=== PATIENT | female | born 1930 | race Caucasian/White ===

== ENCOUNTER 2017-06-09 08:46 | Inpatient (IN) | payer MEDICARE ==
[2017-06-09 09:24] LABS: PTT 25.6 SEC (22.9-36.1); Prothrombin Time 14.3 SEC (12.0-14.7)
--- NOTE | 2017-06-09 09:24 | RAD ---
AP CHEST: History: Dyspnea. Date: 06-09-17 FINDINGS: AP chest demonstrates calcification and ectasia over the aorta. The lungs are well aerated. No eviden ce of active intrathoracic disease seen. No evidence of effusions, pneumonia, or pneumothorax seen. IMPRESSION: Unremarkable AP view chest. POS: [facility]
[2017-06-09 09:30] LABS: Lactic Acid - Sepsis 2.7 mmol/L (0.5-2.2)
[2017-06-09 09:36] LABS: ALT (SGPT) 25 U/L (8-55); AST (SGOT) 55 U/L (5-34); Alkaline Phosphatase 61 U/L (40-150); Anion Gap 14 mmol/L (10-20); BUN (Urea Nitrogen) 31 mg/dL (9.8-20.1); Bilirubin, Total 2.1 mg/dL (0.2-1.2); CK (CPK) Less than 9 U/L (29-168); Calc. Creatinine Clearance 0 mL/min (70-130); Calcium 10.3 mg/dL (7.8-10.44); Carbon Dioxide 21 mmol/L (23-31); Chloride 112 mmol/L (98-107); Estimated GFR-MDRD 36; Globulin 2.8 g/dL (2.4-3.5); Magnesium 2.2 mg/dL (1.6-2.6); Protein, Total 6.4 g/dL (6.0-8.3)
[2017-06-09 09:40] LABS: Troponin I 0.026 ng/mL (< 0.028)
[2017-06-09 10:03] LABS: #Basophils 0.1 thou/uL (0.0-0.2); #Eosinphils 0.1 thou/uL (0.0-0.7); #Lymphocytes 2.5 thou/uL (1.20-3.40); #Monocytes 0.4 thou/uL (0.11-0.59); #Neutrophils 6.6 thou/uL (1.40-6.50); %Basophils 0.6 % (0.0-1.0); %Lymphocytes 25.9 % (21.0-51.0); %Monocytes 3.7 % (0.0-10.0); Hematocrit 24.1 % (36.0-47.0); Mean Platelet Volume 7.9 fL (7.4-10.4); Red Blood Cell (RBC) Count 2.29 mill/uL (4.20-5.40); White Blood Cell (WBC) Count 9.6 thou/uL (4.8-10.8)
[2017-06-09] MEDS ORDERED: Aspirin 325 MG TAB ONE (11:49)
[2017-06-09] MEDS ORDERED: Enoxaparin Sodium 40 MG/0.4 ML SYRINGE ONE (12:32)
--- NOTE | 2017-06-09 12:51 | CT ---
CT ANGIOGRAM THORAX WITH IV CONTRAST AND 3D RECONSTRUCTIONS: 06/09/2017 HISTORY: Dyspnea and weakness. Lightheadedness. Decreased oxygen saturation. FINDINGS: There are filling defects seen within the distal aspect of the main pulmonary arteries bilaterally, w ith filling defects seen within the segmental and subsegmental bilateral upper lobe pulmonary arterie s, as well as right lower lobe pulmonary arteries, and to a lesser extent in the left lower lobe pulm onary arteries, consistent with bilateral pulmonary emboli. Vascular calcifications and atherosclerotic plaque are seen involving the thoracic aorta. The thorac ic aorta is normal in caliber without evidence of an aortic dissection. There are linear and parenchymal opacities seen in each lung apex, some of which are partially calcif ied and likely related to pleural and parenchymal scarring. Similar findings are seen in the superio r segment of the left lower lobe, as well as involving each lower lobe, which may be related to eithe r atelectasis and/or scarring as well. There is slight linear and patchy density at the lateral aspe ct of the right upper lobe, which may also be related to an area of mild scarring. There is no discr ete pulmonary nodule or mass identified. There is no evidence of lymphadenopathy. The visualized upper abdomen has a normal CT appearance, aside from atherosclerotic vascular calcific ations in the visualized proximal abdominal aorta. A small hiatal hernia is present. IMPRESSION: 1. Bilateral pulmonary emboli. 2. Scattered linear and patchy densities throughout the lungs bilaterally, probably related to areas of scarring and/or areas of atelectasis. Minimal linear and patchy density in the lateral right upp er lobe may be related to either scarring or a focal area of pneumonitis. Clinical correlation is ross ggested. 3. The above findings were discussed with Dr. Almaguer in the emergency department on 06/09/2017 at 12 :23 hours. CODE CR POS: [facility]
[2017-06-09 13:39] LABS: Bilirubin Negative (Negative); Blood, Urine Trace (Negative); Glucose, Urine (Dipstick) Negative (Negative); Ketone, Urine Negative (Negative); Nitrite Negative (Negative); Protein, Urine (Dipstick) Trace mg/dL (Neg-Trace); Urobilinogen 0.2 mg/dL (0.2-1.0)
[2017-06-09 13:52] LABS: Bacteria/HPF None Seen HPF (None Seen); Hyaline Casts/LPF 0-3 HYALINE CAST LPF (0-3 Hyaline); Squamous Epithelial 0-3 HPF (0-3); WBC/HPF 0-3 HPF (0-3)
[2017-06-09] MEDS ORDERED: ISOVUE-370 76%-LOCM 1 ML ONE (13:55)
[2017-06-09] MEDS ORDERED: HYDROcodone/Acetaminophen 5/325 mg Tablet PO PRN (15:52)
[2017-06-09] MEDS ORDERED: HYDROcodone/Acetaminophen 10/325 mg Tablet PO PRN (15:52)
[2017-06-09] MEDS ORDERED: Acetaminophen 325 MG TAB PO PRN (15:52)
[2017-06-09] MEDS ORDERED: Ondansetron ODT 4 MG TAB PO PRN (15:52)
[2017-06-09] MEDS: Famotidine 20 MG TAB PO SCH (21:58)
[2017-06-09] MEDS: Rivaroxaban 15 MG TAB PO SCH (21:58)
[2017-06-10 05:30] LABS: Anion Gap 16 mmol/L (10-20); BUN (Urea Nitrogen) 25 mg/dL (9.8-20.1); Calc. Creatinine Clearance 25 mL/min (70-130); Calcium 8.7 mg/dL (7.8-10.44); Carbon Dioxide 16 mmol/L (23-31); Chloride 115 mmol/L (98-107); Estimated GFR-MDRD 45
[2017-06-10 06:19] LABS: Band 3 % (5-11); Mean Platelet Volume 7.9 fL (7.4-10.4); Metamyelocyte 2 % (0-0); Myelocyte 1 % (0-0); Neutrophil 62 % (42-75); Nucleated RBC 2 % (0); Red Blood Cell (RBC) Count 1.73 mill/uL (4.20-5.40); White Blood Cell (WBC) Count 7.1 thou/uL (4.8-10.8)
[2017-06-10] MEDS: Famotidine 20 MG TAB PO SCH (08:29)
[2017-06-10] MEDS: Rivaroxaban 15 MG TAB PO SCH ×2 (08:29→21:24)
[2017-06-10] MEDS ORDERED: Epoetin (ESRD) 10,000 UNITS/ML VIAL SC SCH (09:33)
[2017-06-10] MEDS ORDERED: Furosemide 20 MG/2 ML VIAL IVP SCH (09:45)
--- NOTE | 2017-06-10 10:50 | CON ---
DATE OF CONSULTATION: 06/10/2017 HISTORY: Marilu Broussard is an 86-year-old female who has moved recently from out of [facility], [place] . She has seen a local doctor at [facility], Dr. Waters. She now presents last night with weakn ess, lightheaded, low sats. Apparently field contact person is a nurse, her granddaughter. She said her sats w ere in the 80s. A CT angio showed bilateral pulmonary emboli. Two weeks ago she went to see her [facility] sician where she had increase in renal function and apparently the usp Xarelto that she was on was discontinued. She has had previous deep venous thrombosis following hospitalization and rehab in [place]. She is a former smoker, quit smoking at the age of 38. Previous history of pneumonia, but no history of TB or asthma. She is relatively weak. She has lost a lot of appetite and apparently has difficu lty getting around. Though she was not short of breath until recently. She has had chronic pain in the back following a fall. PAST MEDICAL HISTORY: Presumed congestive heart failure, although her ejection fraction has been nor mal. Presumed pulmonary hypertension, renal failure, arthritis, fracture of the spine, chronic pain, bilateral hernia, previous respiratory failure requiring intermediate card tender rehab for a period of time. PAST SURGICAL HISTORY: section. TOBACCO: As noted. CHRONIC MEDICATIONS FROM HOME: Zoloft 25, potassium, vitamins, metoprolol 25, Megace which was stopp ed, Lasix 40, Procrit 2000, Dicyclamine 20, calcium. REVIEW OF SYSTEMS: Otherwise unremarkable. PHYSICAL EXAMINATION: VITAL SIGNS: Sats are 98 on 2 liters, respiratory rate 18, temperature 97, blood pressure 113/48. CHEST: Chest revealed decreased breath sounds, no wheezing. CARDIAC: Normal S1, S2. ABDOMEN: Soft, no masses. LABORATORY: White count 7,000, H&H 6 and 18, platelet count is 342, creatinine 1.3 normal. IMPRESSION: 1. Bilateral pulmonary emboli. 2. Congestive heart failure by history. 3. Mild azotemia. PLAN: Repeat echo. Continue Xarelto indefinitely. No reason to put in a filter at this stage. Will discuss with physicians and follow. I agree with Xarelto, minimize sedation.
--- NOTE | 2017-06-10 11:01 | PDOC.PN ---
- Subjective Encounter Start Date: 06/10/17 Encounter Start Time: 08:15 Pt seen earlier this morning on rounds. States her breathing is better and that she slept well. labs this morning revealed profound anemia. No melena, hematochezia, no hemoptysis. suggest consumption in blood blots/emboli No f/c, no n/v/D/c, no hemoptysis, no cough. 10 point ROS performed and neg for all except as above - Objective Resuscitation Status: Resuscitation Status FULL:Full Resuscitation MAR Reviewed: Yes Vital Signs & Weight: Vital Signs (12 hours) Temp Pulse Resp BP Pulse Ox 06/10/17 07:43 97.7 F 86 20 06/10/17 07:00 97.7 F 86 20 113/48 L 100 Weight Weight 100 lb I&O: 06/09/17 06/10/17 06/11/17 06:59 06:59 06:59 Intake Total 575 120 Balance 575 120 Result Diagrams: 06/10/17 04:21 06/10/17 04:21 Radiology Reviewed by me: Yes EKG Reviewed by me: Yes Phys Exam - Physical Examination Constitutional: NAD HEENT: PERRLA, moist MMs, sclera anicteric, oral pharynx no lesions Neck: no nodes, no JVD, supple, full ROM Respiratory: no wheezing, no rales, no rhonchi Cardiovascular: no significant murmur, no rub regular, slightly tachy Gastrointestinal: soft, non-tender, no distention, positive bowel sounds Musculoskeletal: pulses present, edema present Neurological: non-focal, normal sensation, moves all 4 limbs Lymphatic: no nodes Psychiatric: normal affect, A&O x 3 Skin: no rash, normal turgor, cap refill <2 seconds Dx/Plan (1) Bilateral pulmonary embolism Code(s): I26.99 - OTHER PULMONARY EMBOLISM WITHOUT ACUTE COR PULMONALE Status : Acute (2) Acute post-hemorrhagic anemia Code(s): D62 - ACUTE POSTHEMORRHAGIC ANEMIA Status: Acute Comment: hgb 6.3. likely the cause of her fatigue. will trnasfuse 2 units. will hopefully help to mobilize fluid, improve O2 delivery and oncotically remove 3rd spaced fluid (3) Anemia in chronic renal disease Code(s): N18.9 - CHRONIC KIDNEY DISEASE, UNSPECIFIED; D63.1 - ANEMIA IN CHRONIC KIDNEY DISEASE Status: Acute Qualifiers: Chronic kidney disease stage: stage 3 (moderate) Qualified Code(s): N18.3 - Chronic kidney disease, stage 3 (moderate); D63.1 - Anemia in chronic kidney disease; D63.1 - Anemia in chronic kidney disease Comment: Cr baseline around 1.3-1.4. 1.13 today, follow (4) Paroxysmal A-fib Code(s): I48.0 - PAROXYSMAL ATRIAL FIBRILLATION Status: Chronic Comment: In afib on arrival, NSR in ER, remains in NSR (5) Pulmonary HTN Code(s): I27.20 - PULMONARY HYPERTENSION, UNSPECIFIED Status: Chronic (6) CHF (congestive heart failure) Code(s): I50.9 - HEART FAILURE, UNSPECIFIED Status: Chronic Qualifiers: Congestive heart failure type: unspecified congestive heart failure type Congestive heart failure chronicity: unspecified congestive heart failure chronicity Qualified Code(s): I50.9 - Heart failure, unspecified Comment: unknown type. Echo (7) CKD (chronic kidney disease) stage 3, GFR 30-59 ml/min Code(s): N18.3 - CHRONIC KIDNEY DISEASE, STAGE 3 (MODERATE) Status: Chronic (8) Osteoporosis Code(s): M81.0 - AGE-RELATED OSTEOPOROSIS W/O CURRENT PATHOLOGICAL FRACTURE Status: Chronic Qualifiers: Osteoporosis type: age-related Presence of current pathological fracture: without current pathological fracture Qualified Code(s): M81.0 - Age-related osteoporosis without current pathological fracture - Plan cont current plan of care, plan discussed w/ family, PT/OT, out of bed/ambulate * .
--- NOTE | 2017-06-10 11:03 | ULT ---
BILATERAL LOWER EXTREMITY VENOUS DUPLEX ULTRASOUND INCLUDING COLOR AND SPECTRAL DOPPLER IMAGING: History: 86-year-old female with known pulmonary embolism. FINDINGS: Exam performed from groin to ankle involving both right and left lower extremities. Exam includes visualization of the greater saphenous, common femoral, superficial femoral, profunda f emoral, popliteal, trifurcation and posterior tibial vein regions. There is phasic flow at all levels involving the right lower extremity. On the left side there is evidence for intraluminal thrombus in volving the left common femoral vein, with partial obstruction with complete obstruction involving th e left superficial femoral vein and popliteal vein. IMPRESSION: Deep venous thrombosis with partial occlusion at the left common femoral vein and complete occlusion involving the left superficial femoral vein and left popliteal vein. Unremarkable right lower extremi ty deep venous system. POS: [facility]
--- NOTE | 2017-06-10 13:23 | HP ---
DATE OF ADMISSION: 06/09/2017 TIME OF SERVICE: 1600. PRIMARY CARE PHYSICIAN: Dr. Waters PRIMARY MERCERIZER: Dr. Bettie Chand PRIMARY SANITARY LANDFILL SUPERVISOR: Dr. Wallace CHIEF COMPLAINT: Shortness of breath and weakness. HISTORY OF PRESENT ILLNESS: Ms. Broussard is a very pleasant 86-year-old white female who presents to our emergency department today after EMS was called for her just feeling globally weak. EMS was called and she reportedly had an oxygen saturation in the 80s on room air and it was up in e 90% on 15 liters Ventimask. Here, she has been 93% on 4 liters nasal cannula. She denies any chest pain, but does state that she feels like her heart is racing some. Emergency Department workup revealed a creatinine of 1.39, which appears to be at her baseline, fairl y normal liver functions, and anemia with a hemoglobin of 8. She states she normally lives in the 8 to 8.5 range, and gets weekly Procrit infusions by Dr. Chand. BNP was 2749 and biomarkers were unremarkable, however, they did check a D-dimer that was elevated at 5.45. The patient was placed on the monitor and noted to be in atrial fibrillation with rapid ventricular r esponse, and a CT angiogram was positive for extensive bilateral pulmonary emboli. We were called fo r admission. In talking with the patient, she does not have a nursing home history of any blood clots, however, 4 yea rs ago, was admitted in or around [place] to the hospital for small-bowel obstruction. She was in the hospital for almost 2 weeks. During that time she had multiple problems including the small-amy l obstruction requiring exploratory laparotomy and lysis of adhesions, she also developed some heart issues including atrial fibrillation and had a lower extremity DVT. After all was worked up and reve aled, she was placed on Xarelto, which she has been on chronically for 4 years. About 2 weeks ago, she was taken off the Xarelto and plans were begun to get her set up for an Interv entional Radiology guided or Vascular Surgery placed inferior vena cava filter. She had some instabi lities and was falling more and wanted to prevent her from having an intracranial bleed. She states over the last 4 days, she had become profoundly weak and really unable to get out of bed a nymore. She states she felt weak and short of breath and so she was brought to the emergency departm ent for evaluation. She has no fevers or chills, no dysuria or hematuria. She has had no nausea, vomiting or diarrhea. PAST MEDICAL HISTORY: 1. Congestive heart failure of unknown type. 2. Atrial fibrillation, paroxysmal. 3. Pulmonary hypertension. Per the family, all three of these were diagnosed during her hospital st 4 years ago. 4. Hypertension, essential. 5. Chronic kidney disease, baseline creatinine around 1.3-1.4, would put her at chronic kidney disea se 3. 6. Degenerative joint disease. 7. Osteoporosis. 8. Abdominal hernia. 9. History of T12 compression fracture about 6 months ago. PAST SURGICAL HISTORY: 1. Partial hysterectomy 1957. 2. Exploratory laparotomy, lysis of adhesions in 2012. HOME MEDICATIONS: Medications have been reviewed. Please see intake. She does take Procrit 10,000 units every week. She is on Centrum Silver. She was recently on Xarelto daily, but stopped about 2 weeks ago. 1. Bentyl 20 mg p.o. b.i.d. 2. Fish oil DHA EPA 1200 mg 1 p.o. b.i.d. 3. Lasix 40 mg daily. 4. Glucosamine D3 Boswellia Nba 1 p.o. b.i.d. 5. Megace 20 mg p.o. q.a.m. 6. Metoprolol tartrate 25 mg p.o. daily. 7. KCl 20 mEq daily. 8. Zoloft 25 mg p.o. at bedtime. 9. Multivitamin daily. 10. Calcium carbonate 600 mg p.o. b.i.d. This can be added to her outpatient oral medications. ALLERGIES: NKDA. FAMILY HISTORY: Negative for clotting or bleeding disorders. There is no family history of immune d ysfunction. SOCIAL HISTORY: Negative for alcohol, tobacco and drugs. She recently lived in [place] and moved to [place] to be with family. After she was out of the hospital there she was living with family karen vaughn. She subsequently had a fall and a compression fracture and was back in rehab until a couple months ago. Around March she left [place] and came here to live with her granddaughter who is a nurse. Her medical power of document review attorney is Maryan Linares. The phone number is [phone]. The patient does have an advance directive. If she has an irreversible or terminal condition, she wo uld like comfort measures only. Otherwise, she is a full code. REVIEW OF SYSTEMS: A 10-point review of systems was performed and is negative for all other systems except as per HPI. PHYSICAL EXAMINATION: VITAL SIGNS: Temperature current on admission 97.5, pulse 100, blood pressure 103/53, respiratory ra te 23, satting 97% on 4 liters. GENERAL: She is awake. She is alert. She is oriented x3. She is a thin, frail looking, elderly, w hamilton female, appears to be in no acute distress, but looks like she is extremely tired. HEENT: Normocephalic, atraumatic. Pupils equal, round, reactive to light bilaterally, mucous membra eduard are moist. She had no visible lesions and no thrush. NECK: Supple. She has no lymphadenopathy, no JVD, no thyromegaly. LUNGS: Have coarse crackles present bilateral bases. She is otherwise clear with good air movement. Symmetrical chest excursion. There is no prolonged expiratory phase. CARDIOVASCULAR: She is tachycardic. She was initially irregular, but as I was listening to her and watching the monitor, she actually spontaneously converted from an irregular to a regular sinus tachy cardia. She has no audible murmurs. ABDOMEN: Soft, it is nontender, nondistended. Slightly obese. She has no rebound, rigidity or guar ding. There is a strong hepatojugular reflex. She has normoactive bowel sounds present in all [address] EXTREMITIES: No cyanosis, no clubbing. She has got left greater than right lower extremity edema to the knee level, it is approximately 2+ pitting on the left and 1+ on the right. SKIN: Warm, moist, and well perfused without any rashes or lesions. She looks pale, overall, but is anicteric. No jaundice. NEUROLOGIC: Cranial nerves II-XII grossly intact. She has no focal neurologic deficit. She has nor mal speech. Strength is a 4-5/5. LABORATORY DATA: CMP was fairly normal. Creatinine 1.39, which is in line with the previous numbers . Liver functions show an alkaline phosphatase 61, AST of 55, ALT of 25, slightly elevated and her C BC showed a white count of 9.6 with platelet count of 437,000, hemoglobin is 8.0, hematocrit of 24.0. She normally runs in the 8 to 8.5 range. Her BNP was 2749. CK 59 with an MB of 1.2 and troponin I 0.026. Her D-dimer was elevated at 5.45 and INR is 1.1. Lactic acid initially was 2.7 and improved to 1.1. Urinalysis was negative. RADIOGRAPHIC STUDIES: CT angiogram did show extensive bilateral pulmonary emboli. She had some pneumonitis, either representing pneumonia or effect from her emboli. ASSESSMENT AND PLAN: 1. Bilateral pulmonary emboli: The patient is currently hemodynamically stable. She has converted back to sinus rhythm. She is still tachycardic, but has good blood pressure. We will start her on X arelto 15 mg b.i.d. and convert her over for loading and then back to regular daily dosing. Certainl y she should be on this for life. It is interesting that she stopped her Xarelto 2 weeks ago and sym ptoms started just a few days ago. Certainly just the pulmonary emboli themselves could make her fee l weak. At this time, I do not believe there is any indication for any kind of filter. We will plac e her in the IMCU because of her paroxysmal atrial fibrillation and oxygen requirements. We can keep a closer eye. 2. Paroxysmal atrial fibrillation: Currently back in sinus rhythm. She will be anticoagulated with Xarelto. No further workup at this time. We will watch her biomarkers. 3. Pulmonary hypertension, likely going to be exacerbated by her extensive bilateral pulmonary embol i. Watch her fluid status very closely. 4. Essential hypertension. Continue home medications. 5. Chronic kidney disease: Creatinine is at baseline. We will follow up with morning labs. 6. Osteoporosis, stable. 7. The patient was placed in full admission. We will place her up in the IMCU tonight on Xarelto. We will keep her sats greater than 90%. Pulmonary will be seeing her as she is in the IMCU, will fol low up on their recommendations or changes if they have any. 8. Anemia of chronic disease. The patient is on Procrit every week. We will continue that. We faye l contact Dr. Chand's office for her dosing.
[2017-06-10] MEDS ORDERED: Non-Formulary Item 1 EACH (Glucosamine/D3/Boswellia Serra [Osteo Bi-Flex One Per Day] 1 T PO SCH (21:00)
[2017-06-10] MEDS ORDERED: Non-Formulary Item 1 EACH (Fish Oil/Dha/Epa [Fish Oil 1,200 Mg Fish Oil] 1 CAP) PO SCH (21:00)
[2017-06-10] MEDS: Fish Oil 1,000 MG CAP PO SCH (21:24)
[2017-06-10] MEDS: Calcium Carbonate 600 MG TAB PO SCH (21:24)
[2017-06-10] MEDS: Dicyclomine 20 MG TAB PO SCH (21:24)
[2017-06-11 05:11] LABS: Anion Gap 14 mmol/L (10-20); BUN (Urea Nitrogen) 19 mg/dL (9.8-20.1); Calc. Creatinine Clearance 28 mL/min (70-130); Calcium 8.9 mg/dL (7.8-10.44); Carbon Dioxide 20 mmol/L (23-31); Chloride 110 mmol/L (98-107); Estimated GFR-MDRD 53; Magnesium 1.7 mg/dL (1.6-2.6)
[2017-06-11 06:51] LABS: Anisocytosis SLIGHT = 6-15 cells (100X) (0-5/hpf); Band 15 % (5-11); Mean Platelet Volume 8.1 fL (7.4-10.4); Myelocyte 1 % (0-0); Neutrophil 56 % (42-75); Nucleated RBC 2 % (0); Polychromasia SLIGHT = 2-3 cells (100X) (0-2/hpf); White Blood Cell (WBC) Count 9.9 thou/uL (4.8-10.8)
[2017-06-11] MEDS ORDERED: Non-Formulary Item 1 EACH (Multivitamin With Minerals [Multiple Vitamin] 1 TABLET) PO SCH (09:00)
[2017-06-11] MEDS ORDERED: Furosemide 40 MG TAB PO SCH (09:00)
[2017-06-11] MEDS ORDERED: [UNRECOGNIZED DRUG - OTHER] PO SCH (09:00)
[2017-06-11] MEDS: Megestrol Acetate 40 MG TAB PO SCH (09:39)
[2017-06-11] MEDS: Metoprolol Tartrate 25 MG TAB PO SCH (09:43)
[2017-06-11] MEDS: Rivaroxaban 15 MG TAB PO SCH ×2 (09:43→20:17)
[2017-06-11] MEDS: Dicyclomine 20 MG TAB PO SCH ×2 (09:44→20:17)
[2017-06-11] MEDS: Furosemide 20 MG TAB PO SCH (09:44)
[2017-06-11] MEDS: Calcium Carbonate 600 MG TAB PO SCH ×2 (09:44→20:17)
[2017-06-11] MEDS: Fish Oil 1,000 MG CAP PO SCH ×2 (09:44→20:17)
[2017-06-11] MEDS: Famotidine 20 MG TAB PO SCH (09:44)
[2017-06-11] MEDS: Multivitamin W/ Minerals 1 TAB PO SCH (09:44)
--- NOTE | 2017-06-11 11:41 | PDOC.PN ---
- Subjective Encounter Start Date: 06/11/17 Encounter Start Time: 07:40 Pt says shes breatihn much better, no more afib, no CP or N/V, no F/C. Pt tolerating meds. discussed with pharmacy yesterday regarding Xarelto. GFR by MDRD above 30, should be fine. will contine to monitor Sats 100% at present on 2L NC. no pains 10 point ROS performed and neg for all except as above - Objective Resuscitation Status: Resuscitation Status FULL:Full Resuscitation MAR Reviewed: Yes Vital Signs & Weight: Vital Signs (12 hours) Temp Pulse Pulse Resp BP BP Pulse Ox 06/11/17 10:00 92 18 122/63 97 06/11/17 08:00 98.1 F 82 16 98 06/11/17 07:30 98.1 F 82 16 114/67 98 06/11/17 04:00 98 18 139/69 98 06/11/17 01:35 97.5 F L 87 18 127/61 06/11/17 00:00 97.5 F L 87 18 127/61 Weight Admit Weight 100 lb Weight 100 lb I&O: 06/10/17 06/11/17 06/12/17 06:59 06:59 06:59 Intake Total 575 1740 240 Output Total 180 Balance 575 1560 240 Result Diagrams: 06/11/17 04:04 06/11/17 04:04 Radiology Reviewed by me: Yes EKG Reviewed by me: Yes Phys Exam - Physical Examination Constitutional: NAD HEENT: PERRLA, moist MMs, sclera anicteric, oral pharynx no lesions NC in place Neck: no nodes, no JVD, supple, full ROM Respiratory: no wheezing, no rales, no rhonchi, clear to auscultation bilateral Cardiovascular: RRR, no significant murmur, no rub Gastrointestinal: soft, non-tender, no distention, positive bowel sounds Musculoskeletal: pulses present, edema present Neurological: non-focal, normal sensation, moves all 4 limbs Lymphatic: no nodes Psychiatric: normal affect, A&O x 3 Skin: no rash, normal turgor, cap refill <2 seconds Dx/Plan (1) Bilateral pulmonary embolism Code(s): I26.99 - OTHER PULMONARY EMBOLISM WITHOUT ACUTE COR PULMONALE Status : Acute Comment: on Xarelto 15 BID for now, to daily dosing in 7 days. lifelong planned. Can probably trnasition to prophylactic dosing in 6 months or so. GFR has been ok, if stays near or under 30 ml/min, will need to transition to apixiban (2) Acute post-hemorrhagic anemia Code(s): D62 - ACUTE POSTHEMORRHAGIC ANEMIA Status: Acute Comment: hgb 6.3. likely the cause of her fatigue. will trnasfuse 2 units. will hopefully help to mobilize fluid, improve O2 delivery and oncotically remove 3rd spaced fluid (3) Anemia in chronic renal disease Code(s): N18.9 - CHRONIC KIDNEY DISEASE, UNSPECIFIED; D63.1 - ANEMIA IN CHRONIC KIDNEY DISEASE Status: Acute Qualifiers: Chronic kidney disease stage: stage 3 (moderate) Qualified Code(s): N18.3 - Chronic kidney disease, stage 3 (moderate); D63.1 - Anemia in chronic kidney disease; D63.1 - Anemia in chronic kidney disease Comment: Cr baseline around 1.3-1.4. 1.13 06/10, 0.99 today. GFR up to 50+. follow (4) Paroxysmal A-fib Code(s): I48.0 - PAROXYSMAL ATRIAL FIBRILLATION Status: Resolved Comment: In afib on arrival, NSR in ER, remains in NSR (5) Pulmonary HTN Code(s): I27.20 - PULMONARY HYPERTENSION, UNSPECIFIED Status: Chronic (6) CHF (congestive heart failure) Code(s): I50.9 - HEART FAILURE, UNSPECIFIED Status: Chronic Qualifiers: Congestive heart failure type: unspecified congestive heart failure type Congestive heart failure chronicity: unspecified congestive heart failure chronicity Qualified Code(s): I50.9 - Heart failure, unspecified Comment: unknown type. Echo (7) Osteoporosis Code(s): M81.0 - AGE-RELATED OSTEOPOROSIS W/O CURRENT PATHOLOGICAL FRACTURE Status: Chronic Qualifiers: Osteoporosis type: age-related Presence of current pathological fracture: without current pathological fracture Qualified Code(s): M81.0 - Age-related osteoporosis without current pathological fracture - Plan cont current plan of care, plan discussed w/ family, PT/OT * . follow up on TP/OT eval. [facility]
--- NOTE | 2017-06-11 15:03 | PRG ---
DATE OF SERVICE: 06/11/2017 SUBJECTIVE: Ms. Broussard has no complaints, other than feeling weak. OBJECTIVE: VITAL SIGNS: She is afebrile, heart rate is 81, respiratory rate is 14, oximetry is 95 on 2 liters, blood pressure 115/42. LUNGS: Clear anteriorly. HEART: Regular rhythm. ABDOMEN: Soft. LABORATORY DATA: White count 9.9, hemoglobin 10.3, MCV is 100, platelets 369. Sodium 140, potassium 3.8, chloride 110, bicarbonate 20, BUN 19, creatinine 0.9. IMPRESSION: 1. Pulmonary emboli, clinically stable. 2. Extreme deconditioning showing up needing skilled placement. PLAN: Continue current care with physical therapy, walker and fall precautions.
[2017-06-12 06:03] LABS: Anion Gap 13 mmol/L (10-20); BUN (Urea Nitrogen) 19 mg/dL (9.8-20.1); Calc. Creatinine Clearance 35 mL/min (70-130); Calcium 9.4 mg/dL (7.8-10.44); Carbon Dioxide 17 mmol/L (23-31); Chloride 112 mmol/L (98-107); Estimated GFR-MDRD 58
[2017-06-12 06:29] LABS: #Eosinphils 0.1 thou/uL (0.0-0.7); #Monocytes 0.4 thou/uL (0.11-0.59); #Neutrophils 5.3 thou/uL (1.40-6.50); %Basophils 0.3 % (0.0-1.0); %Eosinophils 1.6 % (0.0-10.0); %Lymphocytes 25.5 % (21.0-51.0); %Monocytes 5.2 % (0.0-10.0); Anisocytosis SLIGHT = 6-15 cells (100X) (0-5/hpf); Hematocrit 26.5 % (36.0-47.0); Mean Platelet Volume 8.6 fL (7.4-10.4); Polychromasia SLIGHT = 2-3 cells (100X) (0-2/hpf); Red Blood Cell (RBC) Count 2.64 mill/uL (4.20-5.40); White Blood Cell (WBC) Count 7.8 thou/uL (4.8-10.8)
[2017-06-12] MEDS: Metoprolol Tartrate 25 MG TAB PO SCH (08:39)
[2017-06-12] MEDS: Famotidine 20 MG TAB PO SCH (08:39)
[2017-06-12] MEDS: Multivitamin W/ Minerals 1 TAB PO SCH (08:39)
[2017-06-12] MEDS: Megestrol Acetate 40 MG TAB PO SCH (08:39)
[2017-06-12] MEDS: Rivaroxaban 15 MG TAB PO SCH (08:39)
[2017-06-12] MEDS: Furosemide 20 MG TAB PO SCH (08:39)
[2017-06-12] MEDS: Calcium Carbonate 600 MG TAB PO SCH (08:39)
[2017-06-12] MEDS: Dicyclomine 20 MG TAB PO SCH (08:39)
[2017-06-12] MEDS: Fish Oil 1,000 MG CAP PO SCH (08:39)
[2017-06-12] MEDS ORDERED: Megestrol Acetate 800 MG/20 ML UDCUP PO SCH ×2 (10:00→21:00)
--- NOTE | 2017-06-12 10:56 | PDOC.PN ---
- Subjective Encounter Start Date: 06/12/17 Encounter Start Time: 09:30 Pt seen on rounds, daughter present. Pt offof O2. Pt note reviewed: ambulated 24 feet, weak and unsteady, recommended SNF or IPR. Pt states she was seen by 'someone from rehab' earlier. When asked if her name was Brenda, she stated that that 'sounded right '. Discussed with case management adn family. Pt medically stable to go to rehab when arranged. No CP or SOB, no palpitations, no f/C, no n/V/d/C/. 10 point ROS performed and neg for all except as per HPI review of MAR shows pt on wrong dose of Megace -> corrected - Objective Resuscitation Status: Resuscitation Status FULL:Full Resuscitation MAR Reviewed: Yes Vital Signs & Weight: Vital Signs (12 hours) Temp Pulse Pulse Resp BP BP BP 06/12/17 08:50 104 H 132/60 139/64 06/12/17 08:44 97.6 F 103 H 14 115/56 L 06/12/17 04:00 97.7 F 85 20 114/59 L 06/12/17 02:32 Pulse Ox Pulse Ox 06/12/17 08:50 96 06/12/17 08:44 100 06/12/17 04:00 96 06/12/17 02:32 98 Weight Admit Weight 100 lb Weight 115 lb I&O: 06/11/17 06/12/17 06/13/17 06:59 06:59 06:59 Intake Total 1740 1135 Output Total 180 5 Balance 1560 1130 Result Diagrams: 06/12/17 05:15 06/12/17 05:15 Radiology Reviewed by me: Yes EKG Reviewed by me: Yes Phys Exam - Physical Examination Constitutional: NAD HEENT: PERRLA, moist MMs, sclera anicteric, oral pharynx no lesions dried blood under right nare Neck: no nodes, no JVD, supple, full ROM Respiratory: no wheezing, no rales, no rhonchi, clear to auscultation bilateral Cardiovascular: RRR, no significant murmur, no rub Gastrointestinal: soft, non-tender, no distention, positive bowel sounds Musculoskeletal: pulses present, edema present Neurological: non-focal, normal sensation, moves all 4 limbs Lymphatic: no nodes Psychiatric: normal affect, A&O x 3 Skin: no rash, normal turgor, cap refill <2 seconds Dx/Plan (1) Bilateral pulmonary embolism Code(s): I26.99 - OTHER PULMONARY EMBOLISM WITHOUT ACUTE COR PULMONALE Status : Acute Comment: on Xarelto 15 BID for now, to daily dosing in 7 days. lifelong planned. Can probably transition to prophylactic dosing in 6 months or so. GFR has been ok, if stays near or under 30 ml/min, will need to transition to apixiban (2) Acute post-hemorrhagic anemia Code(s): D62 - ACUTE POSTHEMORRHAGIC ANEMIA Status: Acute Comment: hgb 6.3 after hydration on admit. likely the cause of her fatigue. Transfused 2 units. h/H has remained stable. suspect consumption from clot burden (3) Anemia in chronic renal disease Code(s): N18.9 - CHRONIC KIDNEY DISEASE, UNSPECIFIED; D63.1 - ANEMIA IN CHRONIC KIDNEY DISEASE Status: Acute Qualifiers: Chronic kidney disease stage: stage 3 (moderate) Qualified Code(s): N18.3 - Chronic kidney disease, stage 3 (moderate); D63.1 - Anemia in chronic kidney disease; D63.1 - Anemia in chronic kidney disease Comment: Cr baseline around 1.3-1.4. 1.13 06/10, 0.99 today. GFR up to 50+. follow (4) Paroxysmal A-fib Code(s): I48.0 - PAROXYSMAL ATRIAL FIBRILLATION Status: Resolved Comment: In afib on arrival, NSR in ER, remains in NSR (5) Pulmonary HTN Code(s): I27.20 - PULMONARY HYPERTENSION, UNSPECIFIED Status: Chronic (6) CHF (congestive heart failure) Code(s): I50.9 - HEART FAILURE, UNSPECIFIED Status: Chronic Qualifiers: Congestive heart failure type: unspecified congestive heart failure type Congestive heart failure chronicity: unspecified congestive heart failure chronicity Qualified Code(s): I50.9 - Heart failure, unspecified Comment: unknown type. Echo (7) Osteoporosis Code(s): M81.0 - AGE-RELATED OSTEOPOROSIS W/O CURRENT PATHOLOGICAL FRACTURE Status: Chronic Qualifiers: Osteoporosis type: age-related Presence of current pathological fracture: without current pathological fracture Qualified Code(s): M81.0 - Age-related osteoporosis without current pathological fracture - Plan * .
--- NOTE | 2017-06-12 14:23 | PRG ---
DATE O SERVICE: 06/12/2017 SUBJECTIVE: Ms. Broussard feels better today. OBJECTIVE: VITAL SIGNS: Temperature is 97.5, pulse 77, respirations 16, and O2 sat 100%. HEENT: Unremarkable. NECK: No JVD. CHEST: Clear. CARDIAC: S1 and S2 regular. ABDOMEN: Soft. EXTREMITIES: No edema. ASSESSMENT: 1. Pulmonary emboli. 2. Deconditioning. PLAN: 1. Continue Xarelto. 2. Should be ready for transfer back to rehab at any time.
[2017-06-12 14:40] VITALS: BMI 22.4
[2017-06-12 16:25] VITALS: BP 109/56; TEMP 98
--- NOTE | 2017-06-12 16:50 | DIS ---
DATE OF ADMISSION: 06/09/2017 DATE OF DISCHARGE: 06/12/2017 DISCHARGE DIAGNOSES: 1. Bilateral pulmonary emboli. 2. Acute hypoxic respiratory failure - resolved. 3. Left lower extremity deep venous thrombosis. 4. Moderate protein calorie malnutrition. 5. History of chronic kidney disease, stage 3. 6. Paroxysmal atrial fibrillation. 7. Acute on chronic diastolic congestive heart failure. 8. History of pulmonary hypertension. 9. Anemia of chronic renal disease. 10. Acute consumptive blood loss anemia. CONSULTATIONS: Pulmonary or Critical Care on 06/12/[address] Thom Massey, followed up by Dr. Bartolo Yepez and Dr. Shaan Matthew. PROCEDURES: Echocardiogram on 06/09/2017 that showed EF normal at 60%-65% with mild concentric LVH. E to A flow reversal suggestive of diastolic dysfunction, mild MR, mildly thickened aortic valve, mi ld TR and mildly elevated pulmonary pressures. HISTORY AND PHYSICAL: Ms. Broussard is a very pleasant 86-year-old female recently moved here few [place] hs ago from [facility]. She presented for 4 days of severe malaise. During workup, she was foun d to be in AFIB with RVR, D-dimer was elevated. CT angiogram was positive for extensive bilateral pu lmonary emboli, we were called for admission. HOSPITAL COURSE: The patient was seen and examined by me in the Emergency Department, while examinin g, she actually converted back to sinus rhythm. Her profound weakness and pelvis, I attributed to li mariel being lower that reported on her CBC. She was gently hydrated. She was started on Xarelto. She had been on that previously. She was annika tored in the IMCU. She was given oxygen for her acute hypoxia. Overnight, she did well, she was weaned off the oxygen to some degree. Hemoglobin came back at aroun d 6.5, she was given 2 units of blood which she tolerated well and felt much better. Dr. Massey did or jarred an ultrasound of lower extremities. Lower extremities did show left lower extremity DVT and supe rficial venous thrombosis, she was kept in bed for 24 hours and finally on 06/11/2017, she was allowe d to get up with physical therapy. On 06/11/2017, she was feeling better. She was down to 1 liter of oxygen, she was able to get up wit h physical therapy, but only been able to ambulate 23 feet due to physical deconditioning. She has c ontinued to work with PT overnight and by today she was weaned off of oxygen completely. Labs were n ormal and hemoglobin was stable. She was stable for discharge to rehabilitation. PHYSICAL EXAMINATION: The patient was seen and examined on the day of discharge. Discharge plan and disposition was discussed with the patient, her daughter, and her son-in-law face to face at the bed side. DISCHARGE MEDICATIONS: 1. Xarelto 15 mg p.o. b.i.d. for a total of 7 days and then to 20 mg daily. She was treated. Her G FR increased to well over 50 and remained stable, so she does not need to be dose adjusted at this ti me. 2. Benazepril/HCTZ 20/12.5 one p.o. daily. 3. Budesonide 500 mg inhaled q.12 hours. 4. Caltrate 600 p.o. b.i.d. 5. Bentyl 20 mg p.o. b.i.d. 6. Procrit 10,000 units subcu weekly, managed by Dr. Chand, usually given on Wednesdays or . 7. Fish oil. 8. Lasix 40 mg daily. 9. Glucosamine/D3/boswellia nick 1 p.o. b.i.d. 10. Ipratropium bromide 2.5 mg nebulized t.i.d. 11. Megace 400 mg p.o. b.i.d. 12. Metoprolol tartrate 25 mg daily. 13. Multivitamin. 14. Zofran 4 mg p.o. q.6 hours p.r.n. nausea. New prescription. 15. Protonix 40 mg daily. 16. Potassium chloride 20 mEq daily. 17. Xarelto 50 mg p.o. b.i.d. until 06/16/2017. New prescription. 18. Xarelto 20 mg p.o. daily starting 06/17/2017, new prescription. 19. Zoloft 25 mg p.o. at bedtime. 20. Zocor 40 mg p.o. q.p.m. DISPOSITION: The patient will be discharged to [facility] inpatient rehabilitation for i ntensive rehabilitation. DISCHARGE CONDITION: Good. DISCHARGE DIET: Heart healthy, but mostly ad surendra. The patient has been ordered 3 Ensure t.i.d. betw een meals. FOLLOWUP APPOINTMENTS: Primary care physician, Dr. Sheri Waters. Patient likely needs referral to Cardiology for her chronic diastolic CHF for maximization of her med ications.
== END 2017-06-12 18:11 | DRG 175 ==
LOC: ERS 08:46 → IMCU/EMU 14:51 → 2NO 06-11 14:21
PROVIDERS: ADMIT Internal Medicine Infectious Disease; ATTEND Internal Medicine Infectious Disease
PROC: 30233N1 Transfusion of Nonautologous Red Blood Cells into Peripheral Vein, Percutaneous Approach (ICD-10-PCS; principal; 2017-06-10)
DX: I26.99 Other pulmonary embolism without acute cor pulmonale (principal); J96.01 Acute respiratory failure with hypoxia; I50.33 Acute on chronic diastolic (congestive) heart failure; E44.0 Moderate protein-calorie malnutrition; I48.0 Paroxysmal atrial fibrillation; D62 Acute posthemorrhagic anemia; I08.1 Rheumatic disorders of both mitral and tricuspid valves; I27.20 Pulmonary hypertension, unspecified; I82.412 Acute embolism and thrombosis of left femoral vein; F32.9 Major depressive disorder, single episode, unspecified; I13.0 Hypertensive heart and chronic kidney disease with heart failure and stage 1 through stage 4 chronic kidney disease, or unspecified chronic kidney disease; I82.432 Acute embolism and thrombosis of left popliteal vein; N18.3 Chronic kidney disease, stage 3 (moderate); Z86.718 Personal history of other venous thrombosis and embolism; Z79.01 Long term (current) use of anticoagulants; M19.90 Unspecified osteoarthritis, unspecified site; M81.0 Age-related osteoporosis without current pathological fracture; Z91.81 History of falling; Z68.22 Body mass index [BMI] 22.0-22.9, adult; D63.1 Anemia in chronic kidney disease
CPT/HCPCS: 36415; 36430; 51701; 71010; 71275; 80048; 80053; 81003; 81015; 82553; 83605; 83735; 83880; 84484; 85025; 85379; 85610; 85730; 86850; 86900; 86901; 86921; 87086; 93005; 93306; 93970; 94760; 96360; 96361; 96372; A4353; G8978-GP-CL; G8979-GP-CJ; G8987-GO-CJ; G8988-GO-CI; J1650; P9016; S0179

== ENCOUNTER 2017-06-22 16:56 | Inpatient (IN) | payer MEDICARE, OTHER ==
[~2017-06-22 16:56] MED LIST: Iopamidol 370 76% 100 ML VIAL ONE
[2017-06-22 17:53] LABS: #Basophils 0.1 thou/uL (0.0-0.2); #Eosinphils 0.3 thou/uL (0.0-0.7); #Monocytes 0.4 thou/uL (0.11-0.59); #Neutrophils 9.4 thou/uL (1.40-6.50); %Basophils 0.6 % (0.0-1.0); %Eosinophils 2.1 % (0.0-10.0); %Lymphocytes 16.4 % (21.0-51.0); %Monocytes 2.9 % (0.0-10.0); Hematocrit 26.2 % (36.0-47.0); Mean Platelet Volume 7.4 fL (7.4-10.4); Red Blood Cell (RBC) Count 2.66 mill/uL (4.20-5.40); White Blood Cell (WBC) Count 12.1 thou/uL (4.8-10.8)
--- NOTE | 2017-06-22 18:44 | CT ---
NONCONTRAST HEAD CT: History: Syncope. Fall. Comparison: None. Technique: Noncontrast head CT is performed from skull base to skull vertex. FINDINGS: No parenchymal hemorrhage. No extraaxial hematoma. No midline shift. Basilar cisterns are patent. Bra in volume, age appropriate. Cortical valentine white matter differentiation is preserved. Ventricles and sulci are patent and symmetric. Age appropriate atrophy is noted. Intact calvarium. No osseous abnormalities. Adequate aeration of the sinuses and mastoid air cells. A therosclerosis of the cavernous carotid arteries are noted. Minimal white matter hypodensities due to chronic small vessel ischemic change identified. Left front al lobe subcortical white matter hypodensities too small to further characterize but may represent a remote insult. IMPRESSION: No acute intracranial process. No intracranial post-traumatic sequellae. POS: [facility]
[2017-06-22 19:10] LABS: ALT (SGPT) 21 U/L (8-55); AST (SGOT) 65 U/L (5-34); Alkaline Phosphatase 57 U/L (40-150); Anion Gap 16 mmol/L (10-20); BUN (Urea Nitrogen) 12 mg/dL (9.8-20.1); Bilirubin, Total 3.1 mg/dL (0.2-1.2); Calc. Creatinine Clearance 0 mL/min (70-130); Calcium 9.5 mg/dL (7.8-10.44); Carbon Dioxide 12 mmol/L (23-31); Chloride 110 mmol/L (98-107); Estimated GFR-MDRD 58; Globulin 2.9 g/dL (2.4-3.5); Protein, Total 6.2 g/dL (6.0-8.3)
--- NOTE | 2017-06-22 20:13 | CT ---
CT ANGIOGRAM OF THE CHEST: History: Grand mal seizure. Atrial fibrillation. Recent pulmonary artery emboli. Comparison: 06-09-17 Technique: CT angiogram of the chest was performed in the axial plane. Coronal and bilateral oblique 3D maximum intensity projection images are submitted for interpretation. FINDINGS: No mediastinal mass, lymphadenopathy, or hematoma. Heart size is upper normal. Small amount of perica rdial fluid is noted. Coronary artery calcifications are identified. The thoracic and upper abdominal aorta are stable in caliber and patent. No periaortic fat stranding. Visualized upper solid organs are unremarkable. Interval development of bilateral pleural effusions with mild, incomplete pleural enhancement suggest ing possible subpulmonic effusion/empyema. Adjacent lung parenchymal opacities due to atelectasis or pneumonia are noted. Mild thickening of both major fissures. Patchy ground glass opacities in both lo wer lobes. Trachea and central bronchi are patent. There are no lytic or blastic lesions with regards to the osseous structures. Remote distal thoracic spine compression fracture is redemonstrated. Adequate contrast opacification of the pulmonary arterial system to the level of the segmental arteri es. No filling defects. No thromboembolism. Previously noted bilateral pulmonary emboli are no longer appreciated. IMPRESSION: 1. No evidence of pulmonary emboli. 2. Bilateral left subpulmonic effusion/empyema. POS: [facility]
--- NOTE | 2017-06-22 21:49 | PDOC.EVN ---
Event Note - Event Note Event Note: 134833 H&P Dictated 1. Seizure 2. R/O hemothorax 3. Metabolic acidosis 4. HTN plan: see orders
[2017-06-22 22:32] LABS: Anion Gap 11 mmol/L (10-20); BUN (Urea Nitrogen) 12 mg/dL (9.8-20.1); Calc. Creatinine Clearance 0 mL/min (70-130); Calcium 8.1 mg/dL (7.8-10.44); Carbon Dioxide 19 mmol/L (23-31); Chloride 109 mmol/L (98-107); Estimated GFR-MDRD 65
[2017-06-22 22:42] LABS: Oxyhemoglobin 90.6 % (94.0-97.0); Sodium 136 mmol/L (135-148)
[2017-06-22 22:43] LABS: Mode NASAL CANULA; Modified Allen's Test POSITIVE; Vent NO
[2017-06-23] MEDS ORDERED: Ondansetron HCl/PF 4 MG/2 ML Vial IVP PRN (00:01)
[2017-06-23] MEDS ORDERED: Acetaminophen 325 MG TAB PO PRN (00:01)
[2017-06-23] MEDS ORDERED: HYDROcodone/Acetaminophen 5/325 mg Tablet PO PRN (00:01)
[2017-06-23 04:07] LABS: #Eosinphils 0.2 thou/uL (0.0-0.7); #Lymphocytes 1.5 thou/uL (1.20-3.40); #Monocytes 0.3 thou/uL (0.11-0.59); #Neutrophils 4.4 thou/uL (1.40-6.50); %Basophils 0.7 % (0.0-1.0); %Eosinophils 2.6 % (0.0-10.0); %Lymphocytes 23.8 % (21.0-51.0); %Monocytes 4.4 % (0.0-10.0); Hematocrit 19.1 % (36.0-47.0); Mean Platelet Volume 6.9 fL (7.4-10.4); Red Blood Cell (RBC) Count 1.94 mill/uL (4.20-5.40); White Blood Cell (WBC) Count 6.4 thou/uL (4.8-10.8)
[2017-06-23 04:19] LABS: Anion Gap 12 mmol/L (10-20); BUN (Urea Nitrogen) 11 mg/dL (9.8-20.1); Calc. Creatinine Clearance 0 mL/min (70-130); Calcium 8.1 mg/dL (7.8-10.44); Carbon Dioxide 18 mmol/L (23-31); Chloride 109 mmol/L (98-107); Estimated GFR-MDRD 71
--- NOTE | 2017-06-23 05:54 | HP ---
DATE OF ADMISSION: 06/22/2017 CHIEF COMPLAINT: Seizures. HISTORY OF PRESENT ILLNESS: Patient is an 86-year-old female with past medical history of CHF, atrial fibrillation, hypertension, CKD stage 3, lives in rehab, but now the patient was brought to the ER because of seizure episode. History until obtained from the patient and from the ED nurse, patient was recently discharged from the hospital on 06/12/2017 with a diagnosis of bilateral PE and respiratory failure and patient was in the rehab and today the patient was found to have a seizure, which was witnessed seizure, so patient was brought to the ER. There is no family member is available at this time. Upon ER arrival, the patient was slightly hypoxic, so patient had a CT chest done in the ER. Patient denies any complaints, denies any chest pain, denies any palpation. Denies any cough, denies any sputum production. PAST MEDICAL HISTORY: As per HPI. PAST SURGICAL HISTORY: Partial hysterectomy, exploratory laparoscopic lysis of adhesions. SOCIAL HISTORY: Denies smoking, denies alcohol, denies any drugs. FAMILY HISTORY: Denies any heart problems. REVIEW OF SYSTEMS: Constitutional: Denies any fever, denies any chills. Eyes : Denies vision problems. Ears: Denies any hearing loss. Neck: Denies any neck pain. Cardiovascular: Denies any chest pain. Respiratory: Denies any cough. Denies sputum production. Gastrointestinal: Denies nausea, vomiting. Cranial nerve system: Positive for seizures per history, but patient also denies any headache at this time. Musculoskeletal: Denies any joint deformities. All other review of systems are reviewed and discussed with the patient are negative. PHYSICAL EXAMINATION: CONSTITUTIONAL/VITAL SIGNS: At the time of H&P performed, blood pressure is 118 /81, pulse ox is 92%, heart rate 78. GENERAL: The patient appears tired. Anterior nares patent. HEENT: Nose normal. Ears normal. Teeth intact. Tongue is moist. NECK: Supple, no JVD. CARDIOVASCULAR: S1, S2 present. Regular rate and rhythm. No murmurs, no rubs , no gallops. RESPIRATORY SYSTEM: No wheezing, no rhonchi. Breath sounds bilaterally. GASTROINTESTINAL: Abdomen is soft, nontender, no organomegaly. MUSCULOSKELETAL: No edema. CRANIAL NERVE SYSTEM: Awake, speech clear, follows commands. PSYCHIATRIC: Mood appropriate at this time. : No suprapubic or inguinal tenderness LABORATORY DATA: At the time of H&P performed, white count 12.1, hemoglobin 8.6 , platelet count is 748. D-dimer 2.84. BMP shows sodium 133, potassium 5, chloride of 110, CO2 of 12, BUN of 12, creatinine 0.91. CT chest, no evidence of PE, bilateral left subpulmonic effusions/empyema. ASSESSMENT AND PLAN: The patient is 86-year-old female: 1. New onset seizure. Plan to consult Neurology on this patient. Plan to monitor the patient closely. Plan to place the patient on seizure precautions. 2. Bilateral pleural effusions. Empyema versus hemothorax. ED physician did speak to the second watch sergeant. Per ED physician, the second watch sergeant suspected hemothorax. We will go ahead and monitor hemoglobin closely. Current hemoglobin is stable. We will check H&H q.6 hours. We will go ahead and consult Cardiothoracic Surgery and also Pulmonary to evaluate the patient. Hold anticoagulation at this time. CT is negative for any new PE. We will go ahead and get bilateral lower extremity ultrasounds to evaluate the thrombus. If the thrombus is worsening, the patient might need IVC filter. We will go ahead and consult Cardiothoracic Vascular Surgery also to evaluate the patient. 3. Metabolic acidosis, might be due to severe seizure, so we will go ahead and check repeat BMP now. I will monitor bicarbonate level closely. We will check lactic acid level also. 4. History of congestive heart failure. Continue home medications. 5. History of atrial fibrillation. Monitor heart rate. Continue home meds. 6. History of hypertension. Continue blood pressure meds. Case was discussed in detail with the patient. WILMAN
--- NOTE | 2017-06-23 06:57 | ULT ---
PRELIMINARY REPORT/[facility]/EMERGENCY AFTER HOURS PROCEDURE: Addendum created by Sánchez Gardner MD on 06/23/2017 2:04 AM Central Time ([place] & [place]) Findings discussed with KATLYN CLARKE MD at time of interpretation. Initial Report created on 06/23/2017 1:17 AM Central Time ([place] & [place]) EXAM: US Duplex Bilateral Lower Extremity Veins EXAM DATE/TIME: Exam ordered 06/23/2017 12:30 AM CLINICAL HISTORY: 86 years old, female; Signs and symptoms; Edema, localized; Lower extremity, bilateral; Patient HX: P t is currently at rehab for afib w/ rvr, dvt, pe. TECHNIQUE: Real-time ultrasound scan of the veins of the bilateral lower extremities with color Doppler flow, sp ectral waveform analysis and compression. COMPARISON: No relevant prior studies available. FINDINGS: Right deep veins: Partially occlusive thrombosis of the right posterior tibial vein. Right superficial veins: Unremarkable. No thrombus in the visualized right great saphenous vein. Left deep veins: Partially occlusive thrombosis of the left common femoral vein. Near occlusive throm bosis from the proximal femoral vein through popliteal vein. Left superficial veins: Unremarkable. No thrombus in the visualized left great saphenous vein. Soft tissues: No acute findings. No popliteal cyst. IMPRESSION: 1. Partially occlusive thrombosis of the left common femoral vein. Near occlusive thrombosis of the p roximal femoral vein through the popliteal vein. 2. Partially occlusive thrombosis of the right posterior tibial vein. Thank you for allowing us to participate in the care of your patient. Dictated and Authenticated by: Sánchez Gardner MD 06/23/2017 1:17 AM Central Time ([place] & [place]) FINAL REPORT BILATERAL LOWER EXTREMITY VENOUS DOPPLER ULTRASOUND: I agree with the preliminary report given by Dr. Sánchez Gardner of [facility]. POS: OFF
[2017-06-23 07:03] LABS: Hematocrit 23.4 % (36.0-47.0)
[2017-06-23] MEDS ORDERED: Furosemide 40 MG TAB PO SCH (09:00)
[2017-06-23] MEDS ORDERED: Metoprolol Tartrate 25 MG TAB PO SCH (09:00)
[2017-06-23] MEDS ORDERED: Hydrochlorothiazide 25 MG TAB PO SCH (09:00)
[2017-06-23] MEDS ORDERED: Furosemide 40 MG TAB ONE (09:03)
[2017-06-23] MEDS ORDERED: Famotidine 20 MG TAB ONE (09:03)
[2017-06-23] MEDS ORDERED: Metoprolol Tartrate 25 MG TAB ONE (09:03)
[2017-06-23 12:06] LABS: Hematocrit 22.3 % (36.0-47.0)
[2017-06-23] MEDS: Famotidine 20 MG TAB PO SCH ×2 (12:20→20:54)
[2017-06-23] MEDS: Budesonide 0.5 MG/2 ML NEB NEB SCH ×2 (12:22→19:39)
--- NOTE | 2017-06-23 13:23 | PDOC.PN ---
- Subjective Encounter Start Date: 06/23/17 Encounter Start Time: 11:45 Subjective: awake, is a bit lethargic but fully oriented -: no sob or chest pain -: has been amb upto 200ft per daughter at rehab - Objective MAR Reviewed: Yes Result Diagrams: 06/23/17 11:48 06/23/17 03:45 Phys Exam - Physical Examination HEENT: PERRLA, moist MMs Neck: no JVD, supple Respiratory: no wheezing, no rales Cardiovascular: RRR, no significant murmur Gastrointestinal: soft, non-tender, positive bowel sounds Musculoskeletal: pulses present, edema present Neurological: non-focal, moves all 4 limbs Psychiatric: A&O x 3 Dx/Plan (1) Seizure Code(s): R56.9 - UNSPECIFIED CONVULSIONS Status: Acute (2) DVT (deep venous thrombosis) Code(s): I82.409 - ACUTE EMBOLISM AND THOMBOS UNSP DEEP VN UNSP LOWER EXTREMITY Status: Acute Qualifiers: Chronicity: chronic Comment: likely chronic finding, has prior h/o PE/dvt (3) Anemia Code(s): D64.9 - ANEMIA, UNSPECIFIED Status: Acute Qualifiers: Anemia type: unspecified type Qualified Code(s): D64.9 - Anemia, unspecified (4) Metabolic acidosis Code(s): E87.2 - ACIDOSIS Status: Acute (5) Protein-calorie malnutrition, mild Code(s): E44.1 - MILD PROTEIN-CALORIE MALNUTRITION Status: Chronic (6) Bilateral pulmonary embolism Code(s): I26.99 - OTHER PULMONARY EMBOLISM WITHOUT ACUTE COR PULMONALE Status : Acute (7) CHF (congestive heart failure) Code(s): I50.9 - HEART FAILURE, UNSPECIFIED Status: Chronic Qualifiers: Congestive heart failure type: unspecified congestive heart failure type Congestive heart failure chronicity: unspecified congestive heart failure chronicity Qualified Code(s): I50.9 - Heart failure, unspecified (8) CKD (chronic kidney disease) stage 3, GFR 30-59 ml/min Code(s): N18.3 - CHRONIC KIDNEY DISEASE, STAGE 3 (MODERATE) Status: Chronic (9) Osteoporosis Code(s): M81.0 - AGE-RELATED OSTEOPOROSIS W/O CURRENT PATHOLOGICAL FRACTURE Status: Chronic Qualifiers: Osteoporosis type: age-related Presence of current pathological fracture: without current pathological fracture Qualified Code(s): M81.0 - Age-related osteoporosis without current pathological fracture (10) Paroxysmal A-fib Code(s): I48.0 - PAROXYSMAL ATRIAL FIBRILLATION Status: Resolved - Plan await neurology opinion -: not on any seizure meds now -: Hb of 7g, has b/l dvt with prior h/o PE on xarelto, will hold for now -: d/w , likely will have filter -: will f/u, d/w family at bedside * . Review of Systems - Medications/Allergies Allergies/Adverse Reactions: Allergies Allergy/AdvReac Type Severity Reaction Status Date / Time No Known Allergies Allergy Verified 06/09/17 16:23 Medications: Current Medications Acetaminophen (Tylenol) 650 mg PO Q4H PRN PRN Reason: Headache/Fever or Pain Hydrocodone Bitart/Acetaminophen ([place] 5/325) 1 tab PO Q4H PRN PRN Reason: Moderate Pain (4-6) Amoxicillin/Clavulanate Potassium (Augmentin) 500 mg PO Q12HR [facility] Stop: 06/30/17 21:01 Atorvastatin Calcium (Lipitor) 20 mg PO QPM [facility] Benazepril HCl (Lotensin) 20 mg PO DAILY [facility] Last Admin: 06/23/17 12:19 Dose: Not Given Budesonide (Pulmicort Neb Solution) 0.5 mg NEB BID-RT [facility] Last Admin: 06/23/17 12:22 Dose: Not Given Famotidine (Pepcid) 20 mg PO BID [facility] Last Admin: 06/23/17 12:20 Dose: Not Given Furosemide (Lasix) 40 mg PO DAILY [facility] Last Admin: 06/23/17 12:20 Dose: Not Given Hydrochlorothiazide (Hydrochlorothiazide) 12.5 mg PO DAILY [facility] Last Admin: 06/23/17 12:20 Dose: Not Given Sodium Chloride (Normal Saline 0.9%) 1,000 mls @ 50 mls/hr IV .Q20H [facility] Metoprolol Tartrate (Lopressor) 25 mg PO DAILY [facility] Last Admin: 06/23/17 12:21 Dose: Not Given Ondansetron HCl (Zofran) 4 mg IVP Q6H PRN PRN Reason: Nausea/Vomiting Pantoprazole Sodium (Protonix) 40 mg PO DAILY [facility] Last Admin: 06/23/17 12:21 Dose: Not Given Sodium Chloride (Flush - Normal Saline) 10 ml IVF Q12HR [facility] Last Admin: 06/23/17 12:21 Dose: Not Given Sodium Chloride (Flush - Normal Saline) 10 ml IVF PRN PRN PRN Reason: Saline Flush
[2017-06-23 15:05] VITALS: BMI 17.9
[2017-06-23] MEDS: Sodium Chloride 0.9% 1,000 ML IV SCH ×2 (15:41→16:38)
--- NOTE | 2017-06-23 16:06 | CON ---
DATE OF CONSULTATION: 06/23/2017 HISTORY OF PRESENT ILLNESS: Ms. Broussard is an 86-year-old woman, who was brought into the hospital w ith a seizure. She has history of congestive heart failure, atrial fibrillation, hypertension, and r enal insufficiency. As part of her emergency room workup, she had a CT angio of the chest performed. This showed very miniscule bilateral pleural effusions. I was consulted for management recommendat ions. PAST MEDICAL HISTORY: As above. PAST SURGICAL HISTORY: 1. Hysterectomy. 2. Exploratory laparoscopy. SOCIAL HISTORY: She does not use alcohol, tobacco or any other drugs. REVIEW OF SYSTEMS: Negative except as above. PHYSICAL EXAMINATION: GENERAL: This is an elderly diminutive woman resting comfortably in the Emergency Department. LUNGS: Clear bilaterally. HEART: Rhythm is regular, without murmur. ABDOMEN: Soft, nontender. EXTREMITIES: No edema. ASSESSMENT AND PLAN: Small bilateral effusions. I would not recommend any therapeutic or diagnostic workup further these effusions at this time.
--- NOTE | 2017-06-23 16:59 | CON ---
DATE OF CONSULTATION: 06/23/2017 HISTORY OF PRESENT ILLNESS: Marilu Broussard is an 86-year-old female who was seen during last admiss [facility]. She at that time presented with DVT and PE. She was sent to the rehab and as of yesterday acco rding to her family members, she was seizing, generalized seizure activity. She was sent to the ER where a CT of the brain done at 1714 shows no acute process. A CT of the ches t was done which shows evidence of known PE, small subpulmonic effusion. Ultrasound of the leg shows evidence of right deep vein partial occlusion and left deep vein partial occlusion. Patient states that she was walking at a rehab a fair distance. Previous extensive history is well o utlined. She has chronic atrial fibrillation, history of previous deep venous thrombosis 4 years ago while she was living in [place]. Xarelto was discontinued prior to her previous admission for [facility] GI surgery problems. She was restarted during last visit. PAST MEDICAL HISTORY: Otherwise, CHF, pulmonary hypertension by history, renal failure, arthritis, c hronic pain, atrial fibrillation and deconditioning. SOCIAL AND FAMILY HISTORY: Previous tobacco abuse. PAST SURGICAL HISTORY: . MEDICATIONS: From the residential, Zoloft 25, Xarelto 20, potassium, Protonix, vitamins, Megace 400 , metoprolol 25, benazepril, calcium, Symbicort, Lasix 40. REVIEW OF SYSTEMS: Otherwise negative. PHYSICAL EXAMINATION: GENERAL: Awake, alert, responsive. She moves all 4 extremities. VITAL SIGNS: Temperature is 98, O2 saturations 97%, respiratory rate 16, blood pressure 109/56. CHEST: Reveals decreased breath sounds without any wheezing. CARDIAC: Normal S1, S2. LABORATORY DATA: White count 6000, H&H is 7 and 23. , platelet count is normal. PO2 was 58, p CO2 27, pH 7.46, on 2 liters. Electrolytes are normal. IMPRESSION: 1. New onset seizures. 2. Small bilateral pleural effusion. I doubt she has got empyema. 3. Deep venous thrombosis, pulmonary embolism in the past, is on senior care anticoagulation. 4. History of presumed congestive heart failure. 5. History of atrial fibrillation. 6. Former smoker. I see no contraindication to restart Xarelto, await input from Neurology. PLAN: Continue early ambulation and supportive care. I will discuss and follow. I have empirically started her on antibiotics. Presumed empyema which is noted above, too small to tap. She is asymptomatic.
[2017-06-23 19:06] LABS: Hematocrit 26.5 % (36.0-47.0)
[2017-06-23] MEDS: Metoprolol Tartrate 25 MG TAB PO SCH (20:31)
[2017-06-23] MEDS: Atorvastatin Calcium 20 MG TAB PO SCH ×2 (20:32→20:55)
--- NOTE | 2017-06-23 21:30 | CON ---
DATE OF CONSULTATION: 06/23/2017 IMPRESSION: 1. New onset seizures with a history of symptoms suggestive of simple partial seizures. 2. Mild early phase dementia. 2. Recent pulmonary embolus. 3. Chronic anemia. PLAN: 1. Dilantin 300 mg per night. 2. Office followup. 3. Case management for possible group home transfer. HISTORY OF PRESENT ILLNESS: Ms. Broussard is an 86-year-old white female who was doing relatively well until about 6 months ago. Family reports she started having multiple issues come on. She has had s ome chronic anemia and required Procrit shots. She developed pulmonary embolus from DVT and had to b e placed on anticoagulants. She was over in rehab and had a witnessed generalized tonic-clonic seizu re. Prior to this, the family has seen episodic myoclonic jerks as well as some intermittent facial twitching and speech arrest. She has shown some cognitive decline in regard to her memory over the l ast few months as well, has a kind of bit more confused. She had a CT scan of the brain done after [facility] here, which showed some cerebral atrophy, but no obvious focal lesions. Laboratory studies w ere unremarkable. PAST MEDICAL HISTORY: As listed above. ALLERGIES: None reported. SOCIAL HISTORY: No tobacco or alcohol use. She is living with her daughter after moving here from [facility]. REVIEW OF SYSTEMS: No complaint of headache, nausea, vomiting, vertigo, hematemesis, or bright red b lood per rectum. PHYSICAL EXAMINATION: GENERAL: She is a thin, somewhat frail appearing elderly lady lying in bed in no distress. HEENT: Pupils are equal. Conjunctivae clear. Oropharynx clear. Cranium normocephalic, atraumatic. NECK: Supple. EXTREMITIES: No cyanosis. NEUROLOGIC: She is alert and cooperative. Her speech is fluent and clear. Cranial nerves were inta ct. Motor exam showed symmetric strength. There was no fix drift. Minimal postural tremor present. No asterixis was noted. Sensation was intact to light touch. Gait was not tested. SUMMARY: This is an elderly lady who had a witnessed generalized seizure after experiencing a prodro me of possible simple partial seizures. I will go ahead and start her on anticonvulsant therapy and follow up with her.
[2017-06-23] MEDS: Amoxicillin/Potassium Clav 500 MG TAB PO SCH (22:29)
[2017-06-24 01:04] LABS: Hematocrit 20.8 % (36.0-47.0)
[2017-06-24] MEDS: Budesonide 0.5 MG/2 ML NEB NEB SCH ×2 (07:17→18:40)
[2017-06-24 07:20] LABS: PTT 29.3 SEC (22.9-36.1); Prothrombin Time 15.7 SEC (12.0-14.7)
[2017-06-24 07:37] LABS: ALT (SGPT) 13 U/L (8-55); AST (SGOT) 27 U/L (5-34); Alkaline Phosphatase 49 U/L (40-150); Anion Gap 14 mmol/L (10-20); BUN (Urea Nitrogen) 11 mg/dL (9.8-20.1); Calc. Creatinine Clearance 31 mL/min (70-130); Calcium 8.2 mg/dL (7.8-10.44); Carbon Dioxide 19 mmol/L (23-31); Chloride 108 mmol/L (98-107); Estimated GFR-MDRD 61; Globulin 2.1 g/dL (2.4-3.5)
[2017-06-24 07:58] LABS: #Basophils 0.1 thou/uL (0.0-0.2); #Eosinphils 0.1 thou/uL (0.0-0.7); #Lymphocytes 2.4 thou/uL (1.20-3.40); #Monocytes 0.5 thou/uL (0.11-0.59); #Neutrophils 5.5 thou/uL (1.40-6.50); %Basophils 0.9 % (0.0-1.0); %Eosinophils 1.5 % (0.0-10.0); %Lymphocytes 27.8 % (21.0-51.0); %Monocytes 5.3 % (0.0-10.0); Hematocrit 22.4 % (36.0-47.0); Mean Platelet Volume 7.7 fL (7.4-10.4); Red Blood Cell (RBC) Count 2.26 mill/uL (4.20-5.40); White Blood Cell (WBC) Count 8.5 thou/uL (4.8-10.8)
[2017-06-24] MEDS: Sodium Chloride 0.9% 1,000 ML IV SCH ×2 (09:22→16:26)
[2017-06-24] MEDS: Metoprolol Tartrate 25 MG TAB PO SCH ×2 (09:29→21:24)
[2017-06-24] MEDS: Amoxicillin/Potassium Clav 500 MG TAB PO SCH ×2 (09:29→21:24)
--- NOTE | 2017-06-24 10:15 | PRG ---
DATE OF SERVICE: 06/24/2017 This morning she is awake, alert, responsive. Her granddaughter says the patient is somewhat confuse d though she appears to be in no distress. PHYSICAL EXAMINATION: VITAL SIGNS: Sats are 92, respirations 18, temperature 97, blood pressure 108/46. CHEST: Chest reveals decreased breath sounds, no wheezing. CARDIAC: Normal S1, S2, no gallops. ABDOMEN: Soft, no masses. H&H is 17 and 22, white count 8000. Electrolytes are normal. IMPRESSION: 1. Deep venous thrombosis. 2. History of pulmonary embolus. 3. Atrial fibrillation. 4. Encephalopathy. 5. New onset seizure activity. PLAN: At this stage continue oral antibiotics. I will restart Xarelto. The family wants an input f rom Oncology.
--- NOTE | 2017-06-24 10:32 | PDOC.PN ---
- Subjective Encounter Start Date: 06/24/17 Encounter Start Time: 08:00 Subjective: awake, no sob or abd pain -: is moving all extremities -: no further seizures, grand daughter at bedside - Objective MAR Reviewed: Yes Vital Signs & Weight: Vital Signs (12 hours) Temp Pulse Resp BP Pulse Ox 06/24/17 08:00 97.7 F 84 18 06/24/17 07:20 97.7 F 84 18 108/46 L 92 L 06/24/17 07:17 82 20 94 L 06/24/17 04:03 98.8 F 85 14 92/53 L 96 Weight Weight 98 lb I&O: 06/23/17 06/24/17 06/25/17 06:59 06:59 06:59 Intake Total 345 Output Total 0 Balance 345 Result Diagrams: 06/24/17 07:05 06/24/17 07:05 Phys Exam - Physical Examination HEENT: PERRLA, moist MMs Neck: no JVD, supple Respiratory: no wheezing, no rales Cardiovascular: RRR, no significant murmur Gastrointestinal: soft, non-tender, positive bowel sounds Musculoskeletal: pulses present, edema present Neurological: non-focal, moves all 4 limbs responds well to verbal questions, fairly oriented for her age of 86yrs Dx/Plan (1) Seizure Code(s): R56.9 - UNSPECIFIED CONVULSIONS Status: Acute (2) DVT (deep venous thrombosis) Code(s): I82.409 - ACUTE EMBOLISM AND THOMBOS UNSP DEEP VN UNSP LOWER EXTREMITY Status: Chronic Qualifiers: Chronicity: chronic Comment: likely chronic finding, has prior h/o PE/dvt (3) Anemia Code(s): D64.9 - ANEMIA, UNSPECIFIED Status: Acute Qualifiers: Anemia type: unspecified type Qualified Code(s): D64.9 - Anemia, unspecified (4) Metabolic acidosis Code(s): E87.2 - ACIDOSIS Status: Acute (5) Protein-calorie malnutrition, mild Code(s): E44.1 - MILD PROTEIN-CALORIE MALNUTRITION Status: Chronic (6) Bilateral pulmonary embolism Code(s): I26.99 - OTHER PULMONARY EMBOLISM WITHOUT ACUTE COR PULMONALE Status : Chronic (7) CHF (congestive heart failure) Code(s): I50.9 - HEART FAILURE, UNSPECIFIED Status: Chronic Qualifiers: Congestive heart failure type: unspecified congestive heart failure type (8) Osteoporosis Code(s): M81.0 - AGE-RELATED OSTEOPOROSIS W/O CURRENT PATHOLOGICAL FRACTURE Status: Chronic Qualifiers: Osteoporosis type: age-related Presence of current pathological fracture: without current pathological fracture Qualified Code(s): M81.0 - Age-related osteoporosis without current pathological fracture (9) Paroxysmal A-fib Code(s): I48.0 - PAROXYSMAL ATRIAL FIBRILLATION Status: Resolved - Plan h/h around 7.01/06, give 1 unit prbc as pt is on xarelto with progressive de -: -robertson in [facility]. Has chronic PE and dvt -: family wants input from , was on procrit for anemia -: dc all antihtn meds except low dose lopressor -: is on dilantin 300mg hs, iv fluids. * . d/w grand daughter, she is worried pt is getting confused and was beligerent at night with her. Have given details of current plan. She prefers 's opinion reg anemia with prior procrits given for the same. PT eval Review of Systems - Medications/Allergies Allergies/Adverse Reactions: Allergies Allergy/AdvReac Type Severity Reaction Status Date / Time No Known Allergies Allergy Verified 06/09/17 16:23 Medications: Current Medications Acetaminophen (Tylenol) 650 mg PO Q4H PRN PRN Reason: Headache/Fever or Pain Hydrocodone Bitart/Acetaminophen ([place] 5/325) 1 tab PO Q4H PRN PRN Reason: Moderate Pain (4-6) Amoxicillin/Clavulanate Potassium (Augmentin) 500 mg PO Q12HR SHAMIKA Stop: 06/30/17 21:01 Last Admin: 06/24/17 09:29 Dose: 500 mg Atorvastatin Calcium (Lipitor) 20 mg PO QPM SHAMIKA Last Admin: 06/23/17 20:55 Dose: 20 mg Budesonide (Pulmicort Neb Solution) 0.5 mg NEB BID-RT SHAMIKA Last Admin: 06/24/17 07:17 Dose: 0.5 mg Famotidine (Pepcid) 20 mg PO Q24HR SHAMIKA Sodium Chloride (Normal Saline 0.9%) 1,000 mls @ 100 mls/hr IV .Q10H SHAMIKA Last Admin: 06/24/17 09:22 Dose: 1,000 mls Metoprolol Tartrate (Lopressor) 12.5 mg PO BID [facility] Last Admin: 06/24/17 09:29 Dose: 12.5 mg Ondansetron HCl (Zofran) 4 mg IVP Q6H PRN PRN Reason: Nausea/Vomiting Pantoprazole Sodium (Protonix) 40 mg PO DAILY [facility] Last Admin: 06/24/17 09:29 Dose: 40 mg Phenytoin Sodium (Dilantin Er) 300 mg PO HS [facility] Last Admin: 06/23/17 20:54 Dose: 300 mg Sodium Chloride (Flush - Normal Saline) 10 ml IVF Q12HR [facility] Last Admin: 06/24/17 09:21 Dose: 10 ml Sodium Chloride (Flush - Normal Saline) 10 ml IVF PRN PRN PRN Reason: Saline Flush Sodium Chloride (Flush - Normal Saline) 10 ml IVF PRN PRN PRN Reason: Saline Flush
--- NOTE | 2017-06-24 21:09 | CON ---
DATE OF CONSULTATION: 06/24/2017 REASON FOR CONSULTATION: Anemia. HISTORY OF PRESENT ILLNESS: Ms. Broussard is a pleasant 86-year-old female who presented to the emerge ncy room for seizure activity. She was at the rehab prior to admission. She had a negative brain CT . Neurology saw her and she was started on anti-seizure medications. Her hemoglobin was 8.0 on admi ssion. She has a recent history of DVT and pulmonary embolism for which she was started on Xarelto. She was regaining her strength at the rehabilitation after this admission for pulmonary embolism. S he has seen us in the clinic in the past for anemia of chronic disease and MGUS. She recently moved here from [place] to live with her granddaughter. She has anemia due to chronic renal insufficienc y and has been taking Procrit injections for about 3 years. She usually has required every week to m aintain hemoglobin greater than 10. On this admission, her hemoglobin has trended downward to as low as 7.4. She received 2 units of packed RBCs and improved to 9, today she dropped again 7.6 and rece ived an additional unit of blood. We were asked to see the patient regarding her anemia. PAST MEDICAL HISTORY: 1. Anemia of chronic disease on Procrit injections. 2. Hypertension. 3. High cholesterol. 4. Arthritis. 5. Chronic kidney disease. 6. Blood clots. 7. Pulmonary hypertension. 8. Atrial fibrillation. 9. Abdominal hernia. 10. Osteoporosis. 11. MGUS. PAST SURGICAL HISTORY: Abdominal surgery, hysterectomy. ALLERGIES: No known drug allergies. HOME MEDICATIONS: As noted in [facility]. FAMILY HISTORY: She has a brother with lung cancer. SOCIAL HISTORY: , lives with her granddaughter. No alcohol, tobacco, or illicit drug use. REVIEW OF SYSTEMS: Ten point review of systems is negative except for weakness and fatigue. PHYSICAL EXAMINATION: VITAL SIGNS: Temperature is 97.6, pulse is 73, respiratory rate 20, BP is 104/56. She is 98% on renee m air. GENERAL: Well-developed, well-nourished female in no acute distress. HEENT: Normocephalic, atraumatic. Pupils are equal and reactive to light. NECK: Supple. CARDIOVASCULAR: Regular rate and rhythm. LUNGS: Clear. ABDOMEN: Soft, nontender. EXTREMITIES: No clubbing, cyanosis, or edema. SKIN: No rash. HEMATOLOGIC: No petechia or purpura. NEUROLOGIC: Nonfocal. PSYCHIATRIC: The patient is alert and oriented and appropriate. PERTINENT LABORATORY AND X-RAYS: Current WBCs are 8.5, hemoglobin 7.7, hematocrit 22.4, platelet cou nt 502,000, 65% neutrophils, 28% lymphocytes. PT is 15.7, INR is 1.2, PTT is 29.3. Sodium 137, pota ssium 3.7, chloride 108, CO2 is 19, BUN is 11, creatinine is 0.88, calcium 8.2, total bilirubin is 1, AST is 27, ALT 13, alkaline phosphatase is 49. Serum total protein is 5, albumin 2.9, globulin 2.1. Urine is negative for bacteria. ASSESSMENT: 1. Anemia of chronic disease. 2. Pulmonary embolism/deep venous thrombosis. 3. Atrial fibrillation. 4. New onset seizures. DISCUSSION: Agree with blood transfusion as ordered from the other physicians. Patient should be tr ansfused while here in the hospital and can resume Procrit on an outpatient basis. Granddaughter was not in the room during my assessment. Patient states that she will potentially go back to [place] to be near her friends otherwise, she may go to a swing bed where her hemoglobin can be monitored an d no further recommendations. We will follow up with the granddaughter.
[2017-06-24] MEDS: Atorvastatin Calcium 20 MG TAB PO SCH (21:23)
[2017-06-24] MEDS: Famotidine 20 MG TAB PO SCH (21:23)
[2017-06-25] MEDS: Sodium Chloride 0.9% 1,000 ML IV SCH ×2 (03:53→13:54)
[2017-06-25] MEDS: Budesonide 0.5 MG/2 ML NEB NEB SCH ×2 (07:11→18:21)
[2017-06-25] MEDS: Metoprolol Tartrate 25 MG TAB PO SCH ×2 (08:11→20:26)
[2017-06-25] MEDS: Amoxicillin/Potassium Clav 500 MG TAB PO SCH ×2 (08:12→20:30)
[2017-06-25 10:50] LABS: ALT (SGPT) 17 U/L (8-55); AST (SGOT) 42 U/L (5-34); Alkaline Phosphatase 50 U/L (40-150); Anion Gap 12 mmol/L (10-20); BUN (Urea Nitrogen) 10 mg/dL (9.8-20.1); Bilirubin, Total 2.5 mg/dL (0.2-1.2); Calc. Creatinine Clearance 36 mL/min (70-130); Calcium 7.7 mg/dL (7.8-10.44); Carbon Dioxide 17 mmol/L (23-31); Chloride 114 mmol/L (98-107); Estimated GFR-MDRD 72; Globulin 2.6 g/dL (2.4-3.5); Hematocrit 24.7 % (36.0-47.0); Mean Platelet Volume 8.7 fL (7.4-10.4); Protein, Total 5.5 g/dL (6.0-8.3); Red Blood Cell (RBC) Count 2.48 mill/uL (4.20-5.40); White Blood Cell (WBC) Count 6.4 thou/uL (4.8-10.8)
[2017-06-25] MEDS: Rivaroxaban 10 MG TAB PO SCH (10:56)
[2017-06-25] MEDS: HYDROcodone/Acetaminophen 7.5/325 mg Tablet PO PRN (10:57)
--- NOTE | 2017-06-25 11:05 | PRG ---
DATE OF SERVICE: 06/25/2017 SUBJECTIVE: This morning, she is awake, alert, responsive. She is still having some vague left post erior chest pain. PHYSICAL EXAMINATION: VITAL SIGNS: Sats are 98%, temperature is 97, blood pressure 120/61. She denies any difficulty link thing. CHEST: Reveals decreased breath sounds without wheezing. Left posterior chest wall above the tenth rib is tender. CARDIAC: Normal S1, S2. ABDOMEN: Soft, no masses. LABORATORY DATA: Otherwise shows hemoglobin and hematocrit is stable 7 and 22. Platelet count is no rmal. IMPRESSION: Deep venous thrombosis, history of pulmonary embolism, atrial fibrillation. PLAN: 1. Need to restart Xarelto unless there is a major contraindication. 2. Continue antibiotics for her presumed pneumonia. 3. Left-sided chest pain, musculoskeletal. Plan from a pulmonary standpoint of view, I have restarted Xarelto. If she has contraindication in t he future, she may need a filter, otherwise continue supportive care. We will follow.
[2017-06-25 11:19] LABS: #Eosinphils 0.1 thou/uL (0.0-0.7); #Monocytes 0.3 thou/uL (0.11-0.59); #Neutrophils 4.9 thou/uL (1.40-6.50); %Basophils 0.6 % (0.0-1.0); %Eosinophils 2.3 % (0.0-10.0); %Lymphocytes 15.9 % (21.0-51.0); %Monocytes 4.2 % (0.0-10.0); Anisocytosis MODERATE=16-30 cells (100X) (0-5/hpf); Band 2 % (5-11); Macrocytosis SLIGHT = 6-15 cells (100X) (0-5/hpf); Neutrophil 81 % (42-75)
--- NOTE | 2017-06-25 11:28 | PDOC.PN ---
- Subjective Encounter Start Date: 06/25/17 Encounter Start Time: 10:00 Subjective: c/o left lower rib cage pain, no sob -: is oriented well, moves all extremities -: has amb 200ft with PT - Objective Resuscitation Status: Resuscitation Status DNR:Do Not Resuscitate MAR Reviewed: Yes Vital Signs & Weight: Vital Signs (12 hours) Temp Pulse Resp BP Pulse Ox 06/25/17 07:45 97.5 F L 80 16 128/61 95 06/25/17 07:11 80 16 96 06/25/17 03:56 98.7 F 70 16 108/48 L 99 06/25/17 00:00 99.0 F 81 18 111/50 L 98 Weight Admit Weight 98 lb Weight 98 lb I&O: 06/24/17 06/25/17 06/26/17 06:59 06:59 06:59 Intake Total 345 2411 Output Total 0 Balance 345 2411 Result Diagrams: 06/25/17 10:00 06/25/17 10:00 Phys Exam - Physical Examination HEENT: PERRLA, moist MMs Neck: no JVD, supple Respiratory: no wheezing, no rales Cardiovascular: RRR, no significant murmur Gastrointestinal: soft, non-tender, positive bowel sounds Musculoskeletal: no edema, pulses present Neurological: non-focal, moves all 4 limbs Psychiatric: A&O x 3 Dx/Plan (1) Seizure Code(s): R56.9 - UNSPECIFIED CONVULSIONS Status: Acute (2) DVT (deep venous thrombosis) Code(s): I82.409 - ACUTE EMBOLISM AND THOMBOS UNSP DEEP VN UNSP LOWER EXTREMITY Status: Chronic Qualifiers: Chronicity: chronic Comment: likely chronic finding, has prior h/o PE/dvt (3) Anemia Code(s): D64.9 - ANEMIA, UNSPECIFIED Status: Acute Qualifiers: Anemia type: unspecified type Qualified Code(s): D64.9 - Anemia, unspecified (4) Metabolic acidosis Code(s): E87.2 - ACIDOSIS Status: Acute (5) Protein-calorie malnutrition, mild Code(s): E44.1 - MILD PROTEIN-CALORIE MALNUTRITION Status: Chronic (6) Bilateral pulmonary embolism Code(s): I26.99 - OTHER PULMONARY EMBOLISM WITHOUT ACUTE COR PULMONALE Status : Chronic (7) CHF (congestive heart failure) Code(s): I50.9 - HEART FAILURE, UNSPECIFIED Status: Chronic Qualifiers: Congestive heart failure type: unspecified congestive heart failure type (8) Osteoporosis Code(s): M81.0 - AGE-RELATED OSTEOPOROSIS W/O CURRENT PATHOLOGICAL FRACTURE Status: Chronic Qualifiers: Osteoporosis type: age-related Presence of current pathological fracture: without current pathological fracture Qualified Code(s): M81.0 - Age-related osteoporosis without current pathological fracture (9) Paroxysmal A-fib Code(s): I48.0 - PAROXYSMAL ATRIAL FIBRILLATION Status: Resolved - Plan hemostable, pt wants to be DNR, d/w pt -: is on xarelto -: watch for h/h:04/12 today -: may dc to swing bed if accepted, d/w pt and grand daughter at bedside -: no further seizure, on dilantin * . Review of Systems - Medications/Allergies Allergies/Adverse Reactions: Allergies Allergy/AdvReac Type Severity Reaction Status Date / Time No Known Allergies Allergy Verified 06/09/17 16:23 Medications: Current Medications Acetaminophen (Tylenol) 650 mg PO Q4H PRN PRN Reason: Headache/Fever or Pain Hydrocodone Bitart/Acetaminophen ([place] 5/325) 1 tab PO Q4H PRN PRN Reason: Moderate Pain (4-6) Hydrocodone Bitart/Acetaminophen ([place] 7.5/325) 1 tab PO Q4H PRN PRN Reason: Mild Pain (1-3) Last Admin: 06/25/17 10:57 Dose: 1 tab Amoxicillin/Clavulanate Potassium (Augmentin) 500 mg PO Q12HR [facility] Stop: 06/30/17 21:01 Last Admin: 06/25/17 08:12 Dose: 500 mg Atorvastatin Calcium (Lipitor) 20 mg PO QPM [facility] Last Admin: 06/24/17 21:23 Dose: 20 mg Budesonide (Pulmicort Neb Solution) 0.5 mg NEB BID-RT [facility] Last Admin: 06/25/17 07:11 Dose: 0.5 mg Epoetin Koffi (Procrit) 10,000 units SC Q7DAYS [facility] Famotidine (Pepcid) 20 mg PO Q24HR [facility] Last Admin: 06/24/17 21:23 Dose: 20 mg Sodium Chloride (Normal Saline 0.9%) 1,000 mls @ 100 mls/hr IV .Q10H [facility] Last Admin: 06/25/17 03:53 Dose: 1,000 mls Metoprolol Tartrate (Lopressor) 12.5 mg PO BID [facility] Last Admin: 06/25/17 08:11 Dose: 12.5 mg Ondansetron HCl (Zofran) 4 mg IVP Q6H PRN PRN Reason: Nausea/Vomiting Pantoprazole Sodium (Protonix) 40 mg PO DAILY [facility] Last Admin: 06/25/17 08:12 Dose: 40 mg Phenytoin Sodium (Dilantin Er) 300 mg PO HS [facility] Last Admin: 06/24/17 21:23 Dose: 300 mg Rivaroxaban (Xarelto) 20 mg PO DAILY [facility] Last Admin: 06/25/17 10:56 Dose: 20 mg Sodium Chloride (Flush - Normal Saline) 10 ml IVF Q12HR [facility] Last Admin: 06/25/17 07:48 Dose: Not Given Sodium Chloride (Flush - Normal Saline) 10 ml IVF PRN PRN PRN Reason: Saline Flush Sodium Chloride (Flush - Normal Saline) 10 ml IVF PRN PRN PRN Reason: Saline Flush
[2017-06-25] MEDS: Atorvastatin Calcium 20 MG TAB PO SCH (20:22)
[2017-06-25] MEDS: Famotidine 20 MG TAB PO SCH (20:30)
[2017-06-26] MEDS: Sodium Chloride 0.9% 1,000 ML IV SCH ×2 (00:42→08:17)
[2017-06-26 05:35] LABS: ALT (SGPT) 13 U/L (8-55); AST (SGOT) 28 U/L (5-34); Alkaline Phosphatase 54 U/L (40-150); Anion Gap 5 mmol/L (10-20); BUN (Urea Nitrogen) 8 mg/dL (9.8-20.1); Bilirubin, Total 0.8 mg/dL (0.2-1.2); Calc. Creatinine Clearance 38 mL/min (70-130); Calcium 7.9 mg/dL (7.8-10.44); Carbon Dioxide 25 mmol/L (23-31); Chloride 114 mmol/L (98-107); Estimated GFR-MDRD 70; Globulin 2.2 g/dL (2.4-3.5)
[2017-06-26 06:09] LABS: #Basophils 0.1 thou/uL (0.0-0.2); #Eosinphils 0.2 thou/uL (0.0-0.7); #Monocytes 0.4 thou/uL (0.11-0.59); %Basophils 0.9 % (0.0-1.0); %Eosinophils 3.6 % (0.0-10.0); %Lymphocytes 29.5 % (21.0-51.0); %Monocytes 6.1 % (0.0-10.0); Hematocrit 26.2 % (36.0-47.0); Mean Platelet Volume 7.9 fL (7.4-10.4); Red Blood Cell (RBC) Count 2.69 mill/uL (4.20-5.40); White Blood Cell (WBC) Count 6.7 thou/uL (4.8-10.8)
[2017-06-26 06:48] LABS: Anisocytosis MODERATE=16-30 cells (100X) (0-5/hpf); Macrocytosis SLIGHT = 6-15 cells (100X) (0-5/hpf); Polychromasia MODERATE = 3-4 cells (100X) (0-2/hpf); Spherocytes SLIGHT = 1-5 cells (100X) (None Seen)
--- NOTE | 2017-06-26 07:55 | PDOC.PN ---
- Subjective Encounter Start Date: 06/26/17 Encounter Start Time: 09:00 Subjective: Patient reports sore left lower ant rib cage with any movement. No sig -: cough or trauma aside from seizure. Likely pulled muscle from seizure. - Objective Resuscitation Status: Resuscitation Status DNR:Do Not Resuscitate MAR Reviewed: Yes Vital Signs & Weight: Vital Signs (12 hours) Temp Pulse Resp BP Pulse Ox 06/26/17 04:28 99.2 F 82 16 120/56 L 93 L 06/26/17 00:23 98.8 F 77 16 117/58 L 92 L 06/25/17 20:22 98.6 F 69 16 128/59 L 99 06/25/17 20:00 98.6 F 69 16 99 Weight Admit Weight 98 lb Weight 105 lb 1.6 oz I&O: 06/25/17 06/26/17 06/27/17 06:59 06:59 06:59 Intake Total 2411 60 Balance 2411 60 Result Diagrams: 06/26/17 04:56 06/26/17 04:56 Phys Exam - Physical Examination Constitutional: NAD HEENT: moist MMs Respiratory: no wheezing, no rales, no rhonchi, clear to auscultation bilateral Point tenderness to left ant lower rib cage Cardiovascular: RRR, no significant murmur Gastrointestinal: soft, positive bowel sounds Neurological: non-focal, moves all 4 limbs Psychiatric: normal affect Dx/Plan (1) Anemia Code(s): D64.9 - ANEMIA, UNSPECIFIED Status: Acute Qualifiers: Anemia type: unspecified type Qualified Code(s): D64.9 - Anemia, unspecified Comment: mild drop since yesterday 9.2-->8.8 (06/26/17). No evidence significant bleeding. No further transfusions needed at this point (2) Seizure Code(s): R56.9 - UNSPECIFIED CONVULSIONS Status: Acute (3) DVT (deep venous thrombosis) Code(s): I82.409 - ACUTE EMBOLISM AND THOMBOS UNSP DEEP VN UNSP LOWER EXTREMITY Status: Chronic Qualifiers: Chronicity: chronic Comment: likely chronic finding, has prior h/o PE/dvt (4) Bilateral pulmonary embolism Code(s): I26.99 - OTHER PULMONARY EMBOLISM WITHOUT ACUTE COR PULMONALE Status : Chronic (5) Metabolic acidosis Code(s): E87.2 - ACIDOSIS Status: Resolved (6) Protein-calorie malnutrition, mild Code(s): E44.1 - MILD PROTEIN-CALORIE MALNUTRITION Status: Chronic (7) Anemia in chronic renal disease Code(s): N18.9 - CHRONIC KIDNEY DISEASE, UNSPECIFIED; D63.1 - ANEMIA IN CHRONIC KIDNEY DISEASE Status: Chronic Qualifiers: Chronic kidney disease stage: stage 3 (moderate) Qualified Code(s): N18.3 - Chronic kidney disease, stage 3 (moderate); D63.1 - Anemia in chronic kidney disease; D63.1 - Anemia in chronic kidney disease (8) CHF (congestive heart failure) Code(s): I50.9 - HEART FAILURE, UNSPECIFIED Status: Chronic Qualifiers: Congestive heart failure type: unspecified congestive heart failure type (9) Osteoporosis Code(s): M81.0 - AGE-RELATED OSTEOPOROSIS W/O CURRENT PATHOLOGICAL FRACTURE Status: Chronic Qualifiers: Osteoporosis type: age-related Presence of current pathological fracture: without current pathological fracture Qualified Code(s): M81.0 - Age-related osteoporosis without current pathological fracture (10) Pulmonary HTN Code(s): I27.20 - PULMONARY HYPERTENSION, UNSPECIFIED Status: Chronic (11) Paroxysmal A-fib Code(s): I48.0 - PAROXYSMAL ATRIAL FIBRILLATION Status: Resolved - Plan cont current plan of care, PT/OT D/c to swing bed -: Monitor H/H closely as likely will need repeat transfusions in the future. * . - Discharge Day Encounter end time: 09:20
[2017-06-26] MEDS: Budesonide 0.5 MG/2 ML NEB NEB SCH (08:02)
[2017-06-26] MEDS: Rivaroxaban 10 MG TAB PO SCH (08:17)
[2017-06-26] MEDS: HYDROcodone/Acetaminophen 7.5/325 mg Tablet PO PRN (08:17)
[2017-06-26] MEDS: Amoxicillin/Potassium Clav 500 MG TAB PO SCH (08:18)
[2017-06-26] MEDS: Metoprolol Tartrate 25 MG TAB PO SCH (08:18)
[2017-06-26] MEDS ORDERED: Potassium Chloride 20 MEQ TAB PO SCH (09:30)
--- NOTE | 2017-06-26 10:11 | PRG ---
DATE OF SERVICE: 06/26/2017 She is better, less shortness of breath, coughing, pain. PHYSICAL EXAMINATION: VITAL SIGNS: Sats are 96%, respirations 16, blood pressure 100/65. CHEST: Chest revealed no wheezing. CARDIAC: Normal S1, S2. ABDOMEN: Soft, no masses. H&H 8 and 26. Electrolytes are normal. IMPRESSION: 1. Deep venous thrombosis. 2. History of pulmonary embolus. 3. Seizure disorder. PLAN: From a pulmonary standpoint of view discharge home anytime. Follow with her primary care phys simón at [facility].
[2017-06-26 12:16] VITALS: BP 123/60; TEMP 98.6
--- NOTE | 2017-06-26 21:36 | DIS ---
PRIMARY CARE PHYSICIAN: Sheri Waters MD ADMISSION DIAGNOSES: 1. New onset seizures. 2. Bilateral pleural effusions. 3. Metabolic acidosis. DISCHARGE DIAGNOSES: 1. New onset of seizures, controlled. 2. Anemia secondary to renal failure and chronic blood loss. 3. Deep venous thrombosis with history of pulmonary embolism. 4. Chronic renal disease. 5. Chronic congestive heart failure. 6. Osteoporosis. 7. Pulmonary hypertension. 8. Paroxysmal atrial fibrillation, resolved. PROCEDURES: 1. CTA of the chest and thorax showing no evidence for pulmonary embolism, but with bilateral subpul talia effusion/empyema. 2. CT of the brain without contrast showing no acute intracranial process. PERTINENT LABORATORY DATA: Hemoglobin down to 7.6, posttransfusion up to 9.3, and down to 8.8 at dis charge. SUMMARY OF HOSPITAL COURSE: This is an 86-year-old female with history of CHF, atrial fibrillation, chronic kidney disease, on Eliquis, brought into the ER because of a seizure episode in rehab the day of admission. The patient was found to be slightly hypoxic in the ER. She had a CTA of the chest w hich was negative. No further seizures. The patient was admitted to the hospital. Neurology was co nsulted and she was started on phenytoin sodium extended 300 mg daily. She has not had any further s eizure episodes in the hospital. The patient was found to have bipolar effusions on her CT in the ER , so Dr. Arguelles was consulted. He determined these were small and did not need further workup. Dr. Hermelindo craig was consulted due to the patient's hypoxia. She did well and required no specific pulmonary inte rventions. Dr. Massey did recommend restarting Xarelto. The patient had some blood drop in the hospit al with no evidence of acute bleeding and required a transfusion. Blood count was relatively stable for discharge. She will need to follow up with Madeleine Bartlett, advanced practice nurse who was consult ed for Hem/Onc due to the anemia. This was thought to be due to chronic disease that will need to be followed up as an outpatient with every 3-day CBCs when she goes back to rehabilitation. The abraham larsen was doing well the day of discharge and is being discharged to [facility] for assisted. DISCHARGE MANAGEMENT: Discharged to [facility]. ACTIVITY: As tolerated. DIET: Healthy heart, low sodium diet. DISCHARGE INSTRUCTIONS: She is to get occupational and physical therapy. Need to follow up with her primary care physician in 1 week and again every 3-day H&H to be sent to Dr. Chand's office. DISCHARGE MEDICATIONS: 1. Mirtazapine 15 mg daily. 2. Procrit 10,000 units subcu every 7 days. 3. Zofran 4 mg as needed. 4. Xarelto 20 mg at night. 5. Metoprolol 12.5 mg twice a day. 6. Multivitamin daily. 7. Simvastatin 40 mg daily. 8. Fish oil 1 capsule twice a day. 9. Budesonide 0.5 mg twice a day. 10. Zoloft 25 mg at night. 11. Protonix 40 mg daily. 12. Atrovent 2.5 mg 3 times a day. 13. Bentyl 20 mg twice a day. 14. Dilantin 300 mg at night. This is a new prescription, 30 tablets dispensed.
[2017-07-02] MEDS ORDERED: Epoetin (ESRD) 10,000 UNITS/ML VIAL SC SCH (09:00)
== END 2017-06-26 13:31 | DRG 100 ==
LOC: ERS 16:56 → ERHOLD 21:59 → 2SE 06-23 14:14
PROVIDERS: ADMIT Internal Medicine; ATTEND Internal Medicine
PROC: 30233N1 Transfusion of Nonautologous Red Blood Cells into Peripheral Vein, Percutaneous Approach (ICD-10-PCS; principal; 2017-06-24)
DX: G40.109 Localization-related (focal) (partial) symptomatic epilepsy and epileptic syndromes with simple partial seizures, not intractable, without status epilepticus (principal); G93.40 Encephalopathy, unspecified; E87.2 Acidosis; E44.1 Mild protein-calorie malnutrition; I13.0 Hypertensive heart and chronic kidney disease with heart failure and stage 1 through stage 4 chronic kidney disease, or unspecified chronic kidney disease; I48.0 Paroxysmal atrial fibrillation; F03.90 Unspecified dementia, unspecified severity, without behavioral disturbance, psychotic disturbance, mood disturbance, and anxiety; I27.82 Chronic pulmonary embolism; I27.20 Pulmonary hypertension, unspecified; I50.9 Heart failure, unspecified; G31.9 Degenerative disease of nervous system, unspecified; Z68.1 Body mass index [BMI] 19.9 or less, adult; I82.541 Chronic embolism and thrombosis of right tibial vein; I82.512 Chronic embolism and thrombosis of left femoral vein; I82.532 Chronic embolism and thrombosis of left popliteal vein; N18.3 Chronic kidney disease, stage 3 (moderate); Z86.711 Personal history of pulmonary embolism; D63.1 Anemia in chronic kidney disease; D50.0 Iron deficiency anemia secondary to blood loss (chronic); M81.0 Age-related osteoporosis without current pathological fracture; E78.00 Pure hypercholesterolemia, unspecified; D47.2 Monoclonal gammopathy; Z86.718 Personal history of other venous thrombosis and embolism; Z87.891 Personal history of nicotine dependence; Z79.01 Long term (current) use of anticoagulants; Z66 Do not resuscitate
CPT/HCPCS: 36415; 36430; 70450; 71275; 80048; 80053; 82805; 83605; 85025; 85379; 85610; 85730; 86850; 86900; 86901; 86921; 93970; 94640; A4216; G8978-GP-CM; G8979-GP-CJ; G8987-GO-CJ; G8988-GO-CH; J7626; P9016

== ENCOUNTER 2017-06-30 16:30 | Emergency (ER) | payer MEDICARE, OTHER ==
[2017-06-30 17:23] LABS: PTT 27.8 SEC (22.9-36.1); Prothrombin Time 18.1 SEC (12.0-14.7)
[2017-06-30 17:36] LABS: ALT (SGPT) 26 U/L (8-55); AST (SGOT) 58 U/L (5-34); Alkaline Phosphatase 87 U/L (40-150); Anion Gap 16 mmol/L (10-20); BUN (Urea Nitrogen) 10 mg/dL (9.8-20.1); CK (CPK) 52 U/L (29-168); Calc. Creatinine Clearance 0 mL/min (70-130); Calcium 8.8 mg/dL (7.8-10.44); Carbon Dioxide 19 mmol/L (23-31); Chloride 108 mmol/L (98-107); Estimated GFR-MDRD 71; Lipase 35 U/L (8-78); Protein, Total 6.8 g/dL (6.0-8.3)
[2017-06-30 17:40] LABS: Troponin I 0.015 ng/mL (< 0.028)
[2017-06-30 17:43] LABS: Bilirubin Small (Negative); Blood, Urine Moderate (Negative); Glucose, Urine (Dipstick) Negative (Negative); Ketone, Urine Trace mg/dL (Negative); Nitrite Negative (Negative); Protein, Urine (Dipstick) 30 mg/dL (Neg-Trace); Urobilinogen 0.2 mg/dL (0.2-1.0)
[2017-06-30 17:44] LABS: #Eosinphils 0.2 thou/uL (0.0-0.7); #Lymphocytes 2.4 thou/uL (1.20-3.40); #Monocytes 0.3 thou/uL (0.11-0.59); #Neutrophils 5.5 thou/uL (1.40-6.50); %Basophils 0.5 % (0.0-1.0); %Eosinophils 2.5 % (0.0-10.0); %Lymphocytes 28.3 % (21.0-51.0); %Monocytes 3.2 % (0.0-10.0); Hematocrit 25.2 % (36.0-47.0); Mean Platelet Volume 8.6 fL (7.4-10.4); Red Blood Cell (RBC) Count 2.61 mill/uL (4.20-5.40); White Blood Cell (WBC) Count 8.4 thou/uL (4.8-10.8)
[2017-06-30 17:48] LABS: Bacteria/HPF None Seen HPF (None Seen); Hyaline Casts/LPF 0-3 HYALINE CAST LPF (0-3 Hyaline); RBC/HPF 0-3 HPF (0-3); Squamous Epithelial None Seen HPF (0-3); WBC/HPF 0-3 HPF (0-3)
--- NOTE | 2017-06-30 19:58 | RAD ---
AP VIEW CHEST 06/30/17 HISTORY: Left sided rib pain. AP view chest is obtained on 06/30/17. COMPARISON: Comparison made to previous exam from 06/16/17. AP view chest demonstrates calcification of the aorta. Cardiomegaly is seen. Pulmonary vascular conge stion is present. Some interstitial scarring seen in the right mid lung. No evidence of acute intrath oracic abnormality seen. IMPRESSION: Interstitial scar with no evidence of acute intrathoracic abnormality seen. POS: [facility]
--- NOTE | 2017-06-30 21:16 | CT ---
NONCONTRAST ENHANCED CT CHEST 06/30/17 Comparison made to CTA of chest from eight days earlier on 06/22/17. Noncontrast enhanced CT of the chest demonstrates small bilateral pleural effusions and bibasilar are as of atelectasis or consolidation. There is interval development of an acute left 8th rib fracture w hich was not present on recent CTA from eight days earlier. No other significant interval changes see n. IMPRESSION: Acute left 8th and possible nondisplaced left 9th rib fractures. There is a compression fracture in t he T12 vertebral body. This was noted on the patient's previous CTA of chest and is unchanged. POS: [facility]
== END 2017-06-30 19:24 | disposition home or self-care (01) ==
LOC: ERS 16:30
DX: S22.42XA Multiple fractures of ribs, left side, initial encounter for closed fracture (principal); I48.91 Unspecified atrial fibrillation; I50.9 Heart failure, unspecified; M19.90 Unspecified osteoarthritis, unspecified site; D64.9 Anemia, unspecified; F32.9 Major depressive disorder, single episode, unspecified; Z79.82 Long term (current) use of aspirin; Z79.891 Long term (current) use of opiate analgesic; Z79.899 Other long term (current) drug therapy; Z79.01 Long term (current) use of anticoagulants; X58.XXXA Exposure to other specified factors, initial encounter
CPT/HCPCS: 51701; 71010; 71250; 80053; 80185; 81003; 81015; 82550; 82553; 83690; 84484; 85025; 85610; 85730; 93005

== ENCOUNTER 2017-07-02 18:22 | Emergency (ER) | payer MEDICARE, OTHER ==
[2017-07-02 19:12] LABS: ALT (SGPT) 21 U/L (8-55); AST (SGOT) 42 U/L (5-34); Alkaline Phosphatase 91 U/L (40-150); Anion Gap 14 mmol/L (10-20); BUN (Urea Nitrogen) 11 mg/dL (9.8-20.1); Bilirubin, Total 1.4 mg/dL (0.2-1.2); CK (CPK) 33 U/L (29-168); Calc. Creatinine Clearance 0 mL/min (70-130); Calcium 8.5 mg/dL (7.8-10.44); Carbon Dioxide 21 mmol/L (23-31); Chloride 106 mmol/L (98-107); Estimated GFR-MDRD 52; Globulin 2.6 g/dL (2.4-3.5); Protein, Total 6.1 g/dL (6.0-8.3)
[2017-07-02 19:17] LABS: Troponin I 0.014 ng/mL (< 0.028)
[2017-07-02 19:25] LABS: #Basophils 0.1 thou/uL (0.0-0.2); #Eosinphils 0.4 thou/uL (0.0-0.7); #Monocytes 0.3 thou/uL (0.11-0.59); #Neutrophils 3.9 thou/uL (1.40-6.50); %Basophils 0.8 % (0.0-1.0); %Eosinophils 5.4 % (0.0-10.0); %Lymphocytes 30.7 % (21.0-51.0); %Monocytes 4.9 % (0.0-10.0); Hematocrit 22.1 % (36.0-47.0); Mean Platelet Volume 7.7 fL (7.4-10.4); Red Blood Cell (RBC) Count 2.32 mill/uL (4.20-5.40); White Blood Cell (WBC) Count 6.9 thou/uL (4.8-10.8)
[2017-07-02 19:43] LABS: PTT 22.9 SEC (22.9-36.1); Prothrombin Time 14.2 SEC (12.0-14.7)
--- NOTE | 2017-07-02 21:55 | RAD ---
AP VIEW CHEST 07/02/17 HISTORY: Chest pain. AP view chest is obtained on 07/02/17. Comparison made to previous exam from 06/30/17. AP view chest demonstrates EKG leads seen over the chest. Cardiomegaly is seen. Ectasia and calcifica tion of the aorta is noted. There is some blunting of the left costophrenic angle compatible with a s mall left sided pleural effusion. There is increasing area of density in the right lung base which ma y represent an area of atelectasis or pneumonia. Left lung base opacity remains unchanged. IMPRESSION: 1. Small area of patchy newly developed density in the right lung base compatible with an area o f atelectasis or patchy pneumonia. 2. Slightly increasing left sided pleural effusion. POS: [facility]
--- NOTE | 2017-07-18 15:00 | EKG ---
Test Reason : Blood Pressure : / mmHG Vent. Rate : 104 BPM Atrial Rate : 104 BPM P-R Int : 132 ms QRS Dur : 068 ms QT Int : 364 ms P-R-T Axes : 034 003 -22 degrees QTc Int : 478 ms Sinus tachycardia with Premature atrial complexes Minimal voltage criteria for LVH, may be normal variant Nonspecific ST and T wave abnormality Abnormal ECG Confirmed by EVERT VORA D.O. ([id number]), general expeditor YAMILA VILLANUEVA ([id number] on 07/18/2017 2:59:21 PM Referred By: Confirmed By:EVERT VORA D.O.
== END 2017-07-02 21:30 | disposition home or self-care (01) ==
LOC: ERS 18:22
DX: D64.9 Anemia, unspecified (principal); I11.0 Hypertensive heart disease with heart failure; I50.9 Heart failure, unspecified; I48.91 Unspecified atrial fibrillation; M81.0 Age-related osteoporosis without current pathological fracture; F32.9 Major depressive disorder, single episode, unspecified; Z79.899 Other long term (current) drug therapy
CPT/HCPCS: 71010; 80053; 80185; 82274; 82553; 84484; 85025; 85610; 85730; 93005

== ENCOUNTER 2017-07-07 10:33 | Emergency (ER) | payer MEDICARE, OTHER ==
[2017-07-07 11:28] LABS: #Eosinphils 0.1 thou/uL (0.0-0.7); #Lymphocytes 1.6 thou/uL (1.20-3.40); #Monocytes 0.2 thou/uL (0.11-0.59); #Neutrophils 6.3 thou/uL (1.40-6.50); %Eosinophils 1.3 % (0.0-10.0); %Lymphocytes 19.7 % (21.0-51.0); %Monocytes 2.7 % (0.0-10.0); Hematocrit 23.5 % (36.0-47.0); Mean Platelet Volume 7.9 fL (7.4-10.4); PTT 24.3 SEC (22.9-36.1); Prothrombin Time 21.2 SEC (12.0-14.7); Red Blood Cell (RBC) Count 2.44 mill/uL (4.20-5.40); White Blood Cell (WBC) Count 8.3 thou/uL (4.8-10.8)
[2017-07-07 11:31] LABS: ALT (SGPT) 18 U/L (8-55); AST (SGOT) 88 U/L (5-34); Alkaline Phosphatase 134 U/L (40-150); Anion Gap 19 mmol/L (10-20); BUN (Urea Nitrogen) 10 mg/dL (9.8-20.1); Bilirubin, Total 3.5 mg/dL (0.2-1.2); CK (CPK) 467 U/L (29-168); Calc. Creatinine Clearance 0 mL/min (70-130); Calcium 7.8 mg/dL (7.8-10.44); Carbon Dioxide 24 mmol/L (23-31); Chloride 98 mmol/L (98-107); Estimated GFR-MDRD 60; Globulin 2.7 g/dL (2.4-3.5); Lipase 16 U/L (8-78); Protein, Total 6.7 g/dL (6.0-8.3)
[2017-07-07 11:38] LABS: Troponin I 0.026 ng/mL (< 0.028)
[2017-07-07 11:43] LABS: Polychromasia MODERATE = 3-4 cells (100X) (0-2/hpf)
== END 2017-07-07 17:55 | disposition home or self-care (01) ==
LOC: ERS 10:33
DX: D64.9 Anemia, unspecified (principal); I11.0 Hypertensive heart disease with heart failure; I50.9 Heart failure, unspecified; M19.90 Unspecified osteoarthritis, unspecified site; F32.9 Major depressive disorder, single episode, unspecified; I48.91 Unspecified atrial fibrillation; Z79.899 Other long term (current) drug therapy
CPT/HCPCS: 36430; 80053; 82550; 82553; 83690; 84484; 85025; 85610; 85730; 86850 ×2; 86900; 86901; 86920; 86921; 93005; 96360; 96361; 99285; P9016; 36415

== ENCOUNTER 2017-07-19 09:40 | Emergency (ER) | payer MEDICARE, OTHER ==
--- NOTE | 2017-07-19 10:17 | CT ---
CT BRAIN WITHOUT CONTRAST: HISTORY: Fall, trauma to the head. COMPARISON: Comparison is made with the exam of 06/22/17. FINDINGS: Changes of cortical atrophy and mild chronic small-vessel ischemic disease are again seen. Ventricul ar size is stable and the basilar cisterns patent. No acute infarct, hemorrhage, midline shift, or a bnormal extraaxial fluid collections are seen. Focal dural calcification versus calcified small meni ngioma in the right frontal region is again seen. The bony calvarium is intact. The visualized para nasal sinuses and mastoid air cells are well aerated. There is a suggestion of nasal bone fractures on either side. There is a small scalp contusion in th e frontal region. IMPRESSION: No CT evidence of acute intracranial process. POS: [facility]
--- NOTE | 2017-07-19 10:20 | CT ---
CT CERVICAL SPINE WITH CORONAL AND SAGITTAL REFORMATIONS: HISTORY: Fall, neck pain. FINDINGS/IMPRESSION: There are degenerative changes most prominent at C5-6 level. No acute fracture or subluxation is chery ntified. POS: [facility]
--- NOTE | 2017-07-19 10:36 | CT ---
CT MAXILLOFACIAL NONCONTRAST: DATE: 07/19/17. TIME: 10:03 a.m. HISTORY: An 86-year-old female status post acute facial trauma from fall. FINDINGS: Comminuted nasal bone fracture with left lateral angulation of distal fragments. No other fracture i dentified, including of the mandible, maxilla, zygomatic arches, orbits, and pterygoid plates. No in traorbital hemorrhage or gas. No dislocation of the TMJs. No air fluid levels in the paranasal sinu ses. No large facial soft tissue hematoma. There is a small superficial contusion in the soft tissu es anterior to the frontal sinuses. IMPRESSION: 1. Displaced and angulated nasal bone fracture of indeterminate age. 2. Acute, traumatic small soft tissue contusion of the frontal scalp. 3. No other fractures. POS: [facility]
== END 2017-07-19 11:25 ==
LOC: ERS 09:40
DX: S02.2XXA Fracture of nasal bones, initial encounter for closed fracture (principal); S00.11XA Contusion of right eyelid and periocular area, initial encounter; I11.0 Hypertensive heart disease with heart failure; I50.9 Heart failure, unspecified; I48.91 Unspecified atrial fibrillation; I27.20 Pulmonary hypertension, unspecified; M19.90 Unspecified osteoarthritis, unspecified site; M81.0 Age-related osteoporosis without current pathological fracture; F32.9 Major depressive disorder, single episode, unspecified; W01.198A Fall on same level from slipping, tripping and stumbling with subsequent striking against other object, initial encounter
CPT/HCPCS: 70450; 70486; 72125

== ENCOUNTER 2017-07-29 14:07 | Outpatient (CLI) | payer MEDICARE, OTHER ==
--- NOTE | 2017-07-29 15:54 | RAD ---
CHEST TWO VIEWS: History: Dyspnea. Comparison: 07-02-17 FINDINGS: Cardiac silhouette and pulmonary vasculature are unremarkable. Parenchymal scarring throughout each l teresa, most pronounced at the medial aspect of the left apex is stable. Lungs are otherwise hyperinflat ed. Mediastinum is midline with aortic calcification. Compression of a lower thoracic vertebral body on the lateral view is as demonstrated on CT chest from 06-30-17. IMPRESSION: 1. Atherosclerosis. 2. COPD and other chronic type findings appear stable. POS: [facility]
== END 2017-07-29 14:08 | disposition home or self-care (01) ==
LOC: RAD 14:07
PROVIDERS: ATTEND Internal Medicine Critical Care Medicine
DX: R06.00 Dyspnea, unspecified (principal); J44.9 Chronic obstructive pulmonary disease, unspecified; I70.90 Unspecified atherosclerosis
CPT/HCPCS: 71046

== ENCOUNTER 2017-09-27 17:24 | Emergency (ER) | payer MEDICARE, OTHER ==
[2017-09-27 18:25] LABS: #Eosinphils 0.1 thou/uL (0.0-0.7); #Lymphocytes 1.9 thou/uL (1.20-3.40); #Monocytes 0.4 thou/uL (0.11-0.59); #Neutrophils 6.8 thou/uL (1.40-6.50); %Basophils 0.3 % (0.0-1.0); %Eosinophils 1.4 % (0.0-10.0); %Lymphocytes 20.8 % (21.0-51.0); %Monocytes 4.2 % (0.0-10.0); %Neutrophils 73.2 % (42.0-75.0); Hemoglobin 9.8 g/dL (12.0-16.0); Mean Corpuscular Hemoglobin 36.2 pg (27.0-31.0); Mean Corpuscular Volume 97.9 fl (81.0-99.0); Mean Platelet Volume 8.2 fL (7.4-10.4); Platelet Count 353 thou/uL (130-400); RBC Distribution Width 16.1 % (11.5-14.5); Red Blood Cell (RBC) Count 2.71 mill/uL (4.20-5.40); White Blood Cell (WBC) Count 9.3 thou/uL (4.8-10.8)
[2017-09-27] MEDS ORDERED: Lorazepam 2 MG/ML VIAL ONE (18:54)
[2017-09-27 18:59] LABS: ALT (SGPT) 31 U/L (8-55); AST (SGOT) 53 U/L (5-34); Albumin 4.4 g/dL (3.4-4.8); Alkaline Phosphatase 75 U/L (40-150); Anion Gap 14 mmol/L (10-20); BUN (Urea Nitrogen) 16 mg/dL (9.8-20.1); Bilirubin, Total 1.8 mg/dL (0.2-1.2); Calc. Creatinine Clearance 0 mL/min (70-130); Calcium 9.8 mg/dL (7.8-10.44); Carbon Dioxide 27 mmol/L (23-31); Chloride 102 mmol/L (98-107); Estimated GFR-MDRD 46; Globulin 2.5 g/dL (2.4-3.5); Glucose 113 mg/dL (83-110); Potassium 3.7 mmol/L (3.5-5.1); Protein, Total 6.9 g/dL (6.0-8.3); Sodium 139 mmol/L (136-145)
[2017-09-27 19:18] LABS: Bilirubin Negative (Negative); Blood, Urine Negative (Negative); Clarity CLOUDY (Clear); Glucose, Urine (Dipstick) Negative (Negative); Leukocyte Negative (Negative); Nitrite Negative (Negative); Protein, Urine (Dipstick) Negative (Neg-Trace); Specific Gravity, Urine 1.012 (1.002-1.036)
== END 2017-09-27 20:55 | disposition home or self-care (01) ==
LOC: ERS 17:24
DX: G40.909 Epilepsy, unspecified, not intractable, without status epilepticus (principal); E78.5 Hyperlipidemia, unspecified; I11.0 Hypertensive heart disease with heart failure; I50.9 Heart failure, unspecified; I48.91 Unspecified atrial fibrillation; M19.90 Unspecified osteoarthritis, unspecified site; D64.9 Anemia, unspecified; F03.90 Unspecified dementia, unspecified severity, without behavioral disturbance, psychotic disturbance, mood disturbance, and anxiety; Z87.891 Personal history of nicotine dependence; Z79.899 Other long term (current) drug therapy; Z79.01 Long term (current) use of anticoagulants
CPT/HCPCS: 80053; 81003; 85025; 93005; 96374; J2060

== ENCOUNTER 2018-05-12 10:04 | Emergency (ER) | payer MEDICARE, OTHER ==
[2018-05-12 11:12] LABS: ALT (SGPT) 19 U/L (8-55); AST (SGOT) 58 U/L (5-34); Albumin 4.1 g/dL (3.4-4.8); Alkaline Phosphatase 60 U/L (40-150); Anion Gap 17 mmol/L (10-20); BUN (Urea Nitrogen) 28 mg/dL (9.8-20.1); Bilirubin, Total 3.9 mg/dL (0.2-1.2); CK (CPK) 30 U/L (29-168); Calc. Creatinine Clearance 0 mL/min (70-130); Calcium 8.9 mg/dL (7.8-10.44); Carbon Dioxide 21 mmol/L (23-31); Chloride 103 mmol/L (98-107); Estimated GFR-MDRD 39; Globulin 2.3 g/dL (2.4-3.5); Glucose 117 mg/dL (83-110); Potassium 3.5 mmol/L (3.5-5.1); Protein, Total 6.4 g/dL (6.0-8.3); Sodium 137 mmol/L (136-145)
[2018-05-12 11:18] LABS: CKMB 0.7 ng/mL (0-6.6); Troponin I Less than 0.010 ng/mL (< 0.028)
[2018-05-12 11:59] LABS: Mean Platelet Volume 8.3 fL (7.4-10.4); Platelet Count 470 thou/uL (130-400); White Blood Cell (WBC) Count 6.5 thou/uL (4.8-10.8)
[2018-05-12 12:05] LABS: Anisocytosis MODERATE=16-30 cells (100X) (0-5/hpf); Band 11 % (5-11); Lymphocytes 16 % (21-51); MDiff Complete? YES; Metamyelocyte 1 % (0-0); Monocytes 1 % (0-10); Myelocyte 1 % (0-0); Neutrophil 70 % (42-75); PLT Morphology Comment Appears Increased; Polychromasia MODERATE = 3-4 cells (100X) (0-2/hpf)
[2018-05-12 13:25] LABS: Bilirubin Negative (Negative); Blood, Urine Moderate (Negative); Clarity CLOUDY (Clear); Glucose, Urine (Dipstick) Negative (Negative); Leukocyte Moderate (Negative); Nitrite Positive (Negative); Protein, Urine (Dipstick) Negative (Neg-Trace)
[2018-05-12 13:26] LABS: Bacteria/HPF 4+ HPF (None Seen); Hyaline Casts/LPF 0-3 HYALINE CAST LPF (0-3 Hyaline); Pathc Cast-AUWi Flag 0.29 (0-2.49)
[2018-05-12 14:59] LABS: Lactic Acid 1.3 mmol/L (0.5-2.2)
[2018-05-12] MEDS ORDERED: cefTRIAXone\\ROCEPHIN 1 GM VIAL ONE (15:22)
--- NOTE | 2018-05-15 12:17 | EKG ---
Test Reason : Blood Pressure : / mmHG Vent. Rate : 091 BPM Atrial Rate : 091 BPM P-R Int : 150 ms QRS Dur : 068 ms QT Int : 376 ms P-R-T Axes : 071 005 -01 degrees QTc Int : 462 ms Normal sinus rhythm Normal ECG Confirmed by BERNADETTE NGUYEN ([id number]), editor producer LEONEL FAJARDO ([id number]) on 05/15/2018 12:17:29 PM Referred By: Confirmed By:BERNADETTE NGUYEN
== END 2018-05-12 18:57 | disposition home or self-care (01) ==
LOC: ERS 10:04
DX: E86.0 Dehydration (principal); R62.7 Adult failure to thrive; N39.0 Urinary tract infection, site not specified; E78.5 Hyperlipidemia, unspecified; I48.91 Unspecified atrial fibrillation; I11.0 Hypertensive heart disease with heart failure; I50.9 Heart failure, unspecified; M81.0 Age-related osteoporosis without current pathological fracture; D64.9 Anemia, unspecified; F03.90 Unspecified dementia, unspecified severity, without behavioral disturbance, psychotic disturbance, mood disturbance, and anxiety; Z87.891 Personal history of nicotine dependence; Z79.899 Other long term (current) drug therapy; Z79.01 Long term (current) use of anticoagulants
CPT/HCPCS: 36415; 80053; 81003; 81015; 82550; 82553; 83605; 84484; 85025; 87086; 93005; 96361; 96365; J0696

== ENCOUNTER 2018-05-31 10:52 | Emergency (ER) | payer MEDICARE, OTHER ==
[2018-05-31] MEDS ORDERED: ISOVUE-370 76%-LOCM 1 ML ONE (12:34)
[2018-05-31 13:17] LABS: ALT (SGPT) 24 U/L (8-55); AST (SGOT) 107 U/L (5-34); Albumin 3.8 g/dL (3.4-4.8); Alkaline Phosphatase 55 U/L (40-150); Anion Gap 15 mmol/L (10-20); BUN (Urea Nitrogen) 10 mg/dL (9.8-20.1); Bilirubin, Total 3.1 mg/dL (0.2-1.2); Calc. Creatinine Clearance 0 mL/min (70-130); Calcium 8.8 mg/dL (7.8-10.44); Carbon Dioxide 18 mmol/L (23-31); Chloride 109 mmol/L (98-107); Estimated GFR-MDRD 71; Globulin 2.4 g/dL (2.4-3.5); Glucose 82 mg/dL (83-110); Potassium 5.2 mmol/L (3.5-5.1); Protein, Total 6.2 g/dL (6.0-8.3); Sodium 137 mmol/L (136-145)
[2018-05-31 13:28] LABS: Lipase 9 U/L (8-78)
[2018-05-31 13:32] LABS: Anisocytosis SLIGHT = 6-15 cells (100X) (0-5/hpf); Band 8 % (5-11); Hemoglobin 7.6 g/dL (12.0-16.0); Lymphocytes 24 % (21-51); MDiff Complete? YES; Mean Corpuscular HGB CONC 31.6 g/dL (32.0-36.0); Monocytes 5 % (0-10); Neutrophil 63 % (42-75); PLT Morphology Comment Appears Adequate; Platelet Count 249 thou/uL (130-400); Polychromasia SLIGHT = 2-3 cells (100X) (0-2/hpf); White Blood Cell (WBC) Count 3.4 thou/uL (4.8-10.8)
--- NOTE | 2018-05-31 15:52 | CT ---
CT ABDOMEN AND PELVIS WITH CONTRAST: Date: 05/31/18 COMPARISON: CTA chest dated 05/31/17. HISTORY: Intermittent diarrhea for 1 month with nausea and vomiting. TECHNIQUE: Multiple contiguous axial images were obtained in a CT of the abdomen and pelvis with contrast. Coron al reformats were performed. FINDINGS: There are subcentimeter hypodensities in the kidneys, which are too small to definitely characterize, but likely represent cysts. The liver, gallbladder, adrenal glands, and spleen are unremarkable. The re is a hypodense region in the pancreas measuring 2.1 cm in size which may represent a pancreatic cy st. A cystic neoplasm of the pancreas cannot be excluded. This is seen in the body of the pancreas. There is a 3.7 cm umbilical hernia containing nonobstructed small bowel. The reproductive organs are unremarkable. Scattered diverticula are seen in the colon. The small bowel is normal in caliber witho ut significant distention. The appendix is unremarkable. No abdominal or pelvic lymphadenopathy seen. Atherosclerotic calcifications are seen in the aorta. Degenerative changes are seen in the spine. Visualized inferior thorax is unremarkable. IMPRESSION: 1. Umbilical hernia containing nonobstructed small bowel. 2. Diverticulosis. 3. Cystic lesion in the pancreas may represent a pancreatic pseudocyst. A cystic neoplasm cannot be excluded. A follow-up CT in 3-6 months is recommended to ensure stability. This may have been present on prior CTA of the chest but incompletely imaged. POS: [facility]
== END 2018-05-31 13:27 | disposition home or self-care (01) ==
LOC: ERS 10:52
DX: K52.9 Noninfective gastroenteritis and colitis, unspecified (principal); E78.5 Hyperlipidemia, unspecified; I48.91 Unspecified atrial fibrillation; I27.20 Pulmonary hypertension, unspecified; I11.0 Hypertensive heart disease with heart failure; I50.9 Heart failure, unspecified; M81.0 Age-related osteoporosis without current pathological fracture; D64.9 Anemia, unspecified; F03.90 Unspecified dementia, unspecified severity, without behavioral disturbance, psychotic disturbance, mood disturbance, and anxiety; F32.9 Major depressive disorder, single episode, unspecified; Z87.891 Personal history of nicotine dependence; Z79.899 Other long term (current) drug therapy; Z79.01 Long term (current) use of anticoagulants
CPT/HCPCS: 36415; 74177; 80053; 82274; 83690; 85025; 96360; 96361

== ENCOUNTER 2018-06-03 13:13 | Inpatient (IN) | payer MEDICARE, OTHER ==
[2018-06-03 14:02] VITALS: BMI 17.9
[2018-06-03] MEDS ORDERED: Acetaminophen 325 MG TAB PO PRN (14:58)
[2018-06-03] MEDS ORDERED: Guaifenesin DM 100-10/5 ML UDCUP PO PRN (14:58)
[2018-06-03] MEDS ORDERED: Ondansetron PF 4 MG/2 ML Vial IVP PRN (14:58)
[2018-06-03] MEDS ORDERED: Sodium Chloride 0.9% 1,000 ML IV SCH (15:00)
--- NOTE | 2018-06-03 16:14 | HP ---
REASON FOR ADMISSION: Acute gastroenteritis, possible upper gastrointestinal bleed, anemia. HISTORY OF PRESENT ILLNESS: Patient gives history of having diarrhea which was watery from last 5 we eks. She has been passing 2-3 times a day. This was associated with nausea and vomiting from last f ew days now. Yesterday, she had 2 episodes of black vomitus. The patient had gone to see Dr. Bobby krishnamurthy and was asked to come to the hospital for admission. She has been having poor appetite and is not eating much. Prior to all of this, patient was losing weight and was on extra nutrition and this was holding up per her granddaughter at bedside. Last transfusion was a year back. Patient has history of MGUS and receives Procrit 60,000 units weekly. PAST MEDICAL AND SURGICAL HISTORY: History of MGUS, hypertension, seizure disorder, dyslipidemia, ch ronic arthritis, history of PE, DVT on Xarelto, paroxysmal atrial fibrillation, umbilical hernia, ost eoporosis, history of surgery for small-bowel obstruction, hysterectomy. CURRENT MEDICATIONS: Patient is on Keppra 750 mg twice daily, Xarelto 20 mg daily, Lopressor 12.5 mg twice daily, Bentyl 20 mg daily, calcitonin nasal spray daily, Caltrate once daily, fish oil 1200 mg p.o. daily, Procrit 60,000 units once weekly she received a short today. ALLERGIES: No known drug allergies. PERSONAL HISTORY: Does not abuse alcohol or drugs. No history of smoking. FAMILY HISTORY: Mother of polio and its complications in her 40s. Father at the age of 90 years from unknown cancer. CODE STATUS: DNR. Patient also has advanced directives and this was confirmed with patient and her POA, granddaughter, Ms. Bettie Molina. REVIEW OF SYSTEMS: The following complete review of systems was negative, unless otherwise mentioned in the HPI or below: Constitutional: Weight loss or gain, ability to conduct usual activities. Sk in: Rash, itching. Eyes: Double vision, pain. ENT/Mouth: Nose bleeding, neck stiffness, pain, te nderness. Cardiovascular: Palpitations, dyspnea on exertion, orthopnea. Respiratory: Shortness of breath, wheezing, cough, hemoptysis, fever or night sweats. Gastrointestinal: Poor appetite, abdom inal pain, heartburn, nausea, vomiting, constipation, or diarrhea. Genitourinary: Urgency, frequenc y, dysuria, nocturia. Musculoskeletal: Pain, swelling. Neurologic/Psychiatric: Anxiety, depressio n. Allergy/Immunologic: Skin rash, bleeding tendency. PHYSICAL EXAMINATION: GENERAL: Patient is an 87-year-old female who is currently not in any acute distress. VITAL SIGNS: Blood pressure 126/74, pulse 70 per minute, respiratory rate 20 per minute, temperature 97.6 degrees Fahrenheit, saturating 95% on room air. NECK: Supple, no elevated JVD. HEENT: Eyes, extraocular muscles intact. Pupils reacting to light. Oral cavity, mucous membranes a re dry. No exudates or congestion. CARDIOVASCULAR: S1, S2 heard. Regular rhythm. Murmur plus. RESPIRATORY: Air entry 1+ bilaterally. No rales or rhonchi. ABDOMEN: Soft, bowel sounds heard. No tenderness, rigidity or guarding. EXTREMITIES: No peripheral edema or calf tenderness. VASCULAR SYSTEM: Peripheral pulses 1+ bilateral, no ischemic ulcerations or gangrene. CENTRAL NERVOUS SYSTEM: No gross focal deficits noted. Patient is alert, awake, and oriented well. PSYCHIATRIC: Patient's mood is euthymic. No hallucinations or delusions. LABORATORY DATA: [facility], which shows H&H of 6.6 and 20, platelet co unt was 354 with hemoglobin of 4, all other labs are ordered and is pending at present. CLINICAL IMPRESSION AND PLAN: Patient will be transfused 2 units of packed cell transfusion now. We will keep her on clear liquid diet. Stool studies will be obtained. We will continue her Keppra, L opressor, Protonix 40 mg IV q.12 hourly, Zocor 20 mg daily, and fish oil. We will consult Dr. Brewer, who is concrete stone finishing supervisor for Gastroenterology for possible upper endoscopy. Patient has known history of MGUS, which was transfusion dependent before, but from last 1 year or so, she has been stable on increased dose of Procrit. The patient also has history of PE and DVT and is on Xarelto, which will be held f or now. We will continue to closely monitor her on oncology floor.
[2018-06-03 18:06] LABS: ALT (SGPT) 20 U/L (8-55); AST (SGOT) 70 U/L (5-34); Albumin 3.5 g/dL (3.4-4.8); Alkaline Phosphatase 56 U/L (40-150); Anion Gap 14 mmol/L (10-20); BUN (Urea Nitrogen) 9 mg/dL (9.8-20.1); Bilirubin, Total 2.7 mg/dL (0.2-1.2); Calc. Creatinine Clearance 36 mL/min (70-130); Calcium 8.5 mg/dL (7.8-10.44); Carbon Dioxide 17 mmol/L (23-31); Chloride 111 mmol/L (98-107); Estimated GFR-MDRD 74; Globulin 2.1 g/dL (2.4-3.5); Glucose 85 mg/dL (83-110); Potassium 4.6 mmol/L (3.5-5.1); Protein, Total 5.6 g/dL (6.0-8.3); Sodium 137 mmol/L (136-145)
[2018-06-03 18:38] LABS: Hemoglobin 6.7 g/dL (12.0-16.0); Platelet Count 286 thou/uL (130-400); White Blood Cell (WBC) Count 5.1 thou/uL (4.8-10.8)
--- NOTE | 2018-06-03 18:44 | CON ---
DATE OF CONSULTATION: 06/03/2018 HISTORY OF PRESENT ILLNESS: The patient is an 87-year-old female who was directly admitted by Dr. Chand with a history of several months of diarrhea. She reports she has also been vomiting blackish material. She has been seen in the emergency room back on 05/31/[address] sc an which showed an umbilical hernia containing nonobstructive small bowel, diverticulosis and a cysti c lesion in the pancreas which may represent a pancreatic pseudocyst, this was 2.1 cm in size. She d oes report 20-25 pound weight loss over the last several months. She is presently waiting for a GI a ppointment at [facility] made by her primary care doctor, Bartolo Waters. She received Procrit by Dr. Chand on a regular basis for anemia. PAST SURGICAL HISTORY: Includes pulmonary embolism and DVT on Xarelto, paroxysmal atrial fibrillatio n, hyperlipidemia, seizure disorder and hypertension. PAST SURGICAL HISTORY: Small-bowel obstruction from adhesions, hysterectomy. MEDICATIONS ON ADMISSION: Include Keppra 750 mg p.o. b.i.d., Xarelto 20 mg p.o. daily, Lopressor 12. 5 mg p.o. daily, Bentyl 20 mg p.o. daily, calcitonin nasal spray, Caltrate once daily, fish oil 1200 mg p.o. daily, Procrit 60,000 units weekly. ALLERGIES: No known allergies. SOCIAL HISTORY: She does not smoke or drink. FAMILY HISTORY: Negative for GI or liver disease. REVIEW OF SYSTEMS: CONSTITUTIONAL: Positive for weight loss. Negative for fever or chills. EYES: No blurred vision or double vision. ENT: No sore throat or earaches. CARDIOVASCULAR: No chest pa in or palpitations. PULMONARY: No shortness of breath, cough, or wheezing. SKIN: See above. YUN ROINTESTINAL: See above. GENITOURINARY: No hematuria or dysuria. MUSCULOSKELETAL: No joint pain or muscle weakness. NEUROLOGIC: No seizure activity, no numbness. PHYSICAL EXAMINATION: GENERAL: Shows a cachectic elderly white female in no acute distress. VITAL SIGNS: Temperature 97.6, pulse 72, respiratory rate 20, blood pressure 123/60. HEENT: Unremarkable. NECK: Supple. CHEST: Clear. CARDIOVASCULAR: Regular rate and rhythm without murmurs or gallops. ABDOMEN: Soft and nontender without organomegaly or masses. Bowel sounds are present and normoactiv e. RECTAL: Deferred. EXTREMITIES: Normal. NEUROLOGIC: Nonfocal. LABORATORY DATA: Shows white blood cell count of 3.4, hemoglobin 7.6, hematocrit 24.0 with a platele t count 249. Previous chemistries show potassium 5.2, CO2 18, total bilirubin 3.1, AST of 107. ASSESSMENT: 1. Hematemesis. 2. Anemia. 3. History of deep venous thrombosis, on Xarelto. 4. Paroxysmal atrial fibrillation. RECOMMENDATIONS: 1. PPI. 2. EGD if the patient is not taking Xarelto in recent past. 3. N.p.o. after midnight.
[2018-06-03 19:00] LABS: Anisocytosis SLIGHT = 6-15 cells (100X) (0-5/hpf); Band 5 % (5-11); Eosinophils 1 % (0-10); Lymphocytes 28 % (21-51); MDiff Complete? YES; Monocytes 2 % (0-10); Neutrophil 64 % (42-75); Ovalocytes SLIGHT = 2-5 cells (100X) (0-1/hpf); PLT Morphology Comment Appears Adequate; Polychromasia MODERATE = 3-4 cells (100X) (0-2/hpf); Spherocytes SLIGHT = 1-5 cells (100X) (None Seen)
[2018-06-03] MEDS: levETIRAcetam 500 MG TAB PO SCH (21:57)
[2018-06-03] MEDS: Pantoprazole 40 MG VIAL IVP SCH (21:57)
[2018-06-03] MEDS: Atorvastatin Calcium 10 MG TAB PO SCH (21:57)
[2018-06-03] MEDS: Metoprolol Tartrate 25 MG TAB PO SCH (21:58)
[2018-06-04 06:45] LABS: Anion Gap 12 mmol/L (10-20); BUN (Urea Nitrogen) 8 mg/dL (9.8-20.1); Calc. Creatinine Clearance 38 mL/min (70-130); Carbon Dioxide 19 mmol/L (23-31); Chloride 111 mmol/L (98-107); Estimated GFR-MDRD 78; Glucose 82 mg/dL (83-110); Potassium 4.2 mmol/L (3.5-5.1); Sodium 138 mmol/L (136-145)
[2018-06-04 07:34] LABS: Anisocytosis SLIGHT = 6-15 cells (100X) (0-5/hpf); Band 19 % (5-11); Eosinophils 1 % (0-10); Hemoglobin 9.6 g/dL (12.0-16.0); Lymphocytes 30 % (21-51); MDiff Complete? YES; Mean Corpuscular HGB CONC 36.7 g/dL (32.0-36.0); Monocytes 2 % (0-10); Neutrophil 48 % (42-75); Platelet Count 242 thou/uL (130-400); Poikilocytosis SLIGHT = 6-15 cells (100X) (0-5/hpf); Polychromasia SLIGHT = 2-3 cells (100X) (0-2/hpf); White Blood Cell (WBC) Count 4.7 thou/uL (4.8-10.8)
[2018-06-04] MEDS: Pantoprazole 40 MG VIAL IVP SCH ×2 (08:31→21:02)
[2018-06-04] MEDS: Fish Oil 1,000 MG CAP PO SCH ×2 (08:31→21:01)
[2018-06-04] MEDS: levETIRAcetam 500 MG TAB PO SCH ×2 (08:32→21:00)
[2018-06-04] MEDS: Metoprolol Tartrate 25 MG TAB PO SCH ×2 (08:32→21:00)
[2018-06-04] MEDS: Enoxaparin Sodium 40 MG/0.4 ML SYRINGE SC SCH (08:57)
--- NOTE | 2018-06-04 10:48 | PDOC.PN ---
- Subjective Encounter Start Date: 06/04/18 Encounter Start Time: 09:15 Subjective: no nausea, is tolerating liq diet, is hungry -: no diarrhea from hospitalization - Objective Resuscitation Status: Resuscitation Status DNR:Do Not Resuscitate MAR Reviewed: Yes Vital Signs & Weight: Vital Signs (12 hours) Temp Pulse Pulse Resp BP BP Pulse Ox 06/04/18 08:00 98.1 F 59 L 16 129/63 96 06/04/18 04:00 98.4 F 78 14 112/53 L 95 06/04/18 02:27 98.0 F 76 16 112/54 L 93 L 06/04/18 00:30 98.2 F 64 12 107/53 L 95 06/04/18 00:15 98.2 F 68 14 113/53 L 95 06/04/18 00:11 98.2 F 68 14 113/53 L 94 L Weight Weight 97 lb 12.8 oz I&O: 06/03/18 06/04/18 06/05/18 06:59 06:59 06:59 Intake Total 2170 Balance 2170 Result Diagrams: 06/04/18 05:46 06/04/18 05:46 Phys Exam - Physical Examination HEENT: PERRLA, moist MMs Neck: no JVD, supple Respiratory: no wheezing, no rales Cardiovascular: RRR, no significant murmur Gastrointestinal: soft, non-tender, positive bowel sounds Musculoskeletal: no edema, pulses present Neurological: non-focal, moves all 4 limbs Psychiatric: normal affect, A&O x 3 Dx/Plan (1) GI bleed Code(s): K92.2 - GASTROINTESTINAL HEMORRHAGE, UNSPECIFIED Status: Acute Qualifiers: GI bleed type/associated pathology: unspecified gastrointestinal hemorrhage type Qualified Code(s): K92.2 - Gastrointestinal hemorrhage, unspecified (2) MGUS (monoclonal gammopathy of unknown significance) Code(s): D47.2 - MONOCLONAL GAMMOPATHY Status: Chronic Comment: on procrit 60k u q weekly (3) Acute post-hemorrhagic anemia Code(s): D62 - ACUTE POSTHEMORRHAGIC ANEMIA Status: Acute (4) DVT (deep venous thrombosis) Code(s): I82.409 - ACUTE EMBOLISM AND THOMBOS UNSP DEEP VN UNSP LOWER EXTREMITY Status: Chronic Comment: prior h/o PE/dvt (5) Osteoporosis Code(s): M81.0 - AGE-RELATED OSTEOPOROSIS W/O CURRENT PATHOLOGICAL FRACTURE Status: Chronic Qualifiers: Osteoporosis type: age-related (6) Pulmonary HTN Code(s): I27.20 - PULMONARY HYPERTENSION, UNSPECIFIED Status: Chronic (7) Paroxysmal A-fib Code(s): I48.0 - PAROXYSMAL ATRIAL FIBRILLATION Status: Chronic - Plan recieved 2 units prbc's, Hb around 9g this am -: for egd in am -: dc iv fluids -: continue liq diet -: on keppra, lipitor, fish oil and lopressor * . Review of Systems - Medications/Allergies Allergies/Adverse Reactions: Allergies Allergy/AdvReac Type Severity Reaction Status Date / Time No Known Allergies Allergy Verified 06/09/17 16:23 Medications: Current Medications Acetaminophen (Tylenol) 650 mg PO Q4H PRN PRN Reason: Headache/Fever/Mild Pain (1-3) Atorvastatin Calcium (Lipitor) 10 mg PO QPM [facility] Last Admin: 06/03/18 21:57 Dose: 10 mg Enoxaparin Sodium (Lovenox) 40 mg SC 0900 [facility] Last Admin: 06/04/18 08:57 Dose: Not Given Fish Oil (Fish Oil) 1,000 mg PO BID [facility] Last Admin: 06/04/18 08:31 Dose: 1,000 mg Guaifenesin/Dextromethorphan (Robitussin Dm) 15 ml PO Q4H PRN PRN Reason: Cough Sodium Chloride (Normal Saline 0.9%) 1,000 mls @ 50 mls/hr IV .Q20H [facility] Last Admin: 06/03/18 17:40 Dose: 1,000 mls Levetiracetam (Keppra) 750 mg PO BID [facility] Last Admin: 06/04/18 08:32 Dose: 750 mg Metoprolol Tartrate (Lopressor) 12.5 mg PO BID [facility] Last Admin: 06/04/18 08:32 Dose: 12.5 mg Ondansetron HCl (Zofran) 4 mg IVP Q6H PRN PRN Reason: Nausea/Vomiting Pantoprazole Sodium (Protonix) 40 mg IVP Q12HR [facility] Last Admin: 06/04/18 08:31 Dose: 40 mg Sodium Chloride (Flush - Normal Saline) 10 ml IVF PRN PRN PRN Reason: Saline Flush
--- NOTE | 2018-06-04 11:01 | PRG ---
DATE OF SERVICE: 06/04/2018. SUBJECTIVE: The patient is feeling better today. She had a blood transfusion and is feeling stronge r. She is tolerating diet well. She has had no further bowel movements. OBJECTIVE: VITAL SIGNS: Temperature 98.1, pulse 59, respiratory rate 16, blood pressure 129/63. CHEST: Clear. CARDIOVASCULAR: Regular rate and rhythm. ABDOMEN: Soft, nontender, without organomegaly or masses. Bowel sounds are present and normoactive. LABORATORY DATA: Shows a white blood cell count of 4.7, hemoglobin 9.6, hematocrit 26.0. Chemistrie s show CO2 of 19, BUN 8, glucose 82. ASSESSMENT: 1. Hematemesis. 2. Anemia - multifactorial. 3. History of deep venous thrombosis on Xarelto. 4. Paroxysmal atrial fibrillation. RECOMMENDATIONS: 1. Continue to hold Xarelto. 2. PPI. 3. EGD in a.m. 4. Dr. Card covering.
[2018-06-04] MEDS: Atorvastatin Calcium 10 MG TAB PO SCH (21:00)
[2018-06-05 10:48] LABS: #Eosinphils 0.1 thou/uL (0.0-0.7); #Lymphocytes 1.7 thou/uL (1.20-3.40); #Monocytes 0.3 thou/uL (0.11-0.59); #Neutrophils 4.1 thou/uL (1.40-6.50); %Eosinophils 1.7 % (0.0-10.0); %Lymphocytes 27.5 % (21.0-51.0); %Monocytes 4.3 % (0.0-10.0); %Neutrophils 66.5 % (42.0-75.0); Anisocytosis MODERATE=16-30 cells (100X) (0-5/hpf); Band 4 % (5-11); Hemoglobin 11.7 g/dL (12.0-16.0); Large Platelets SLIGHT; Lymphocytes 20 % (21-51); MDiff Complete? YES; Monocytes 6 % (0-10); Neutrophil 60 % (42-75); Ovalocytes MODERATE= 6-15 cells (100X) (0-1/hpf); PLT Morphology Comment Appears Adequate; Platelet Count 318 thou/uL (130-400); Polychromasia MARKED = >4 cells (100X) (0-2/hpf); Reactive Lymphocytes 10 % (0-10); Vacuoles SLIGHT; White Blood Cell (WBC) Count 6.1 thou/uL (4.8-10.8)
[2018-06-05 11:01] LABS: Chloride 111 mmol/L (98-107); Potassium 4.6 mmol/L (3.5-5.1); Sodium 141 mmol/L (136-145)
[2018-06-05 11:02] LABS: Calcium 8.6 mg/dL (7.8-10.44); Glucose 76 mg/dL (83-110)
[2018-06-05 11:04] LABS: Anion Gap 16 mmol/L (10-20); Carbon Dioxide 19 mmol/L (23-31)
[2018-06-05] MEDS: levETIRAcetam 500 MG TAB PO SCH ×2 (11:04→20:53)
[2018-06-05] MEDS: Pantoprazole 40 MG VIAL IVP SCH (11:04)
[2018-06-05] MEDS: Fish Oil 1,000 MG CAP PO SCH ×2 (11:05→20:53)
[2018-06-05] MEDS: Metoprolol Tartrate 25 MG TAB PO SCH ×2 (11:05→20:53)
[2018-06-05 11:06] LABS: Calc. Creatinine Clearance 35 mL/min (70-130); Estimated GFR-MDRD 72
[2018-06-05 11:07] LABS: BUN (Urea Nitrogen) 9 mg/dL (9.8-20.1)
[2018-06-05] MEDS: Enoxaparin Sodium 40 MG/0.4 ML SYRINGE SC SCH (11:08)
--- NOTE | 2018-06-05 12:37 | PDOC.PN ---
- Subjective Encounter Start Date: 06/05/18 Encounter Start Time: 12:00 Subjective: awake, finished egd this am -: is amb in room - Objective Resuscitation Status: Resuscitation Status DNR:Do Not Resuscitate MAR Reviewed: Yes Vital Signs & Weight: Vital Signs (12 hours) Temp Pulse Resp BP Pulse Ox 06/05/18 07:44 98.3 F 68 16 132/61 94 L Weight Admit Weight 97 lb 12.8 oz Weight 97 lb 12.8 oz I&O: 06/04/18 06/05/18 06/06/18 06:59 06:59 06:59 Intake Total 2170 240 Balance 2170 240 Result Diagrams: 06/05/18 08:27 06/05/18 10:40 Phys Exam - Physical Examination HEENT: PERRLA, moist MMs Neck: no JVD, supple Respiratory: no wheezing, no rales Cardiovascular: RRR, no significant murmur Gastrointestinal: soft, non-tender, positive bowel sounds Musculoskeletal: no edema, pulses present Neurological: non-focal, moves all 4 limbs Psychiatric: normal affect, A&O x 3 Dx/Plan (1) GI bleed Code(s): K92.2 - GASTROINTESTINAL HEMORRHAGE, UNSPECIFIED Status: Acute Qualifiers: GI bleed type/associated pathology: unspecified gastrointestinal hemorrhage type Qualified Code(s): K92.2 - Gastrointestinal hemorrhage, unspecified (2) MGUS (monoclonal gammopathy of unknown significance) Code(s): D47.2 - MONOCLONAL GAMMOPATHY Status: Chronic Comment: on procrit 60k u q weekly (3) Acute post-hemorrhagic anemia Code(s): D62 - ACUTE POSTHEMORRHAGIC ANEMIA Status: Acute (4) DVT (deep venous thrombosis) Code(s): I82.409 - ACUTE EMBOLISM AND THOMBOS UNSP DEEP VN UNSP LOWER EXTREMITY Status: Chronic Comment: prior h/o PE/dvt (5) Osteoporosis Code(s): M81.0 - AGE-RELATED OSTEOPOROSIS W/O CURRENT PATHOLOGICAL FRACTURE Status: Chronic Qualifiers: Osteoporosis type: age-related (6) Pulmonary HTN Code(s): I27.20 - PULMONARY HYPERTENSION, UNSPECIFIED Status: Chronic (7) Paroxysmal A-fib Code(s): I48.0 - PAROXYSMAL ATRIAL FIBRILLATION Status: Chronic - Plan is for colonoscopy in am -: hemostable, h/h stable after transfusion -: continue lipitor, fish oil and lopressor -: dc plan per GI advice * . Review of Systems - Medications/Allergies Allergies/Adverse Reactions: Allergies Allergy/AdvReac Type Severity Reaction Status Date / Time No Known Allergies Allergy Verified 06/09/17 16:23 Medications: Current Medications Acetaminophen (Tylenol) 650 mg PO Q4H PRN PRN Reason: Headache/Fever/Mild Pain (1-3) Atorvastatin Calcium (Lipitor) 10 mg PO QPM [facility] Last Admin: 06/04/18 21:00 Dose: 10 mg Enoxaparin Sodium (Lovenox) 40 mg SC 0900 [facility] Last Admin: 06/05/18 11:08 Dose: Not Given Fish Oil (Fish Oil) 1,000 mg PO BID [facility] Last Admin: 06/05/18 11:05 Dose: 1,000 mg Guaifenesin/Dextromethorphan (Robitussin Dm) 15 ml PO Q4H PRN PRN Reason: Cough Levetiracetam (Keppra) 750 mg PO BID [facility] Last Admin: 06/05/18 11:04 Dose: 750 mg Metoprolol Tartrate (Lopressor) 12.5 mg PO BID [facility] Last Admin: 06/05/18 11:05 Dose: 12.5 mg Ondansetron HCl (Zofran) 4 mg IVP Q6H PRN PRN Reason: Nausea/Vomiting Pantoprazole Sodium (Protonix) 40 mg IVP Q12HR [facility] Last Admin: 06/05/18 11:04 Dose: 40 mg Sodium Chloride (Flush - Normal Saline) 10 ml IVF PRN PRN PRN Reason: Saline Flush Last Admin: 06/05/18 11:04 Dose: 10 ml
[2018-06-05] MEDS ORDERED: Lidocaine 1% PF 5 ML VIAL ONE (13:06)
[2018-06-05] MEDS ORDERED: PROPOFOL 200 MG/20 ML VIAL ONE (13:06)
[2018-06-05] MEDS ORDERED: GoLYTELY 4,000 ml Bottle PO SCH (15:15)
--- NOTE | 2018-06-05 16:05 | OP ---
DATE OF SURGERY: 06/05/2018 OPERATIVE PROCEDURE: Esophagogastroduodenoscopy. PREOPERATIVE DIAGNOSIS: An 87-year-old female with history of coffee-ground vomiting off a nd on over the last several days. She is undergoing esophagogastroduodenoscopy. POSTOPERATIVE DIAGNOSES: 1. Normal esophagus. 2. Normal stomach except for 2-3 gastric polyps. 3. Normal duodenum. OPERATIVE PROCEDURE: Esophagogastroduodenoscopy. No biopsy taken because she is on anticoagulation. PROCEDURE NOTE: The patient was placed on her left lateral position and was given sedation by Anesth esia department. A Pentax video gastroscope under direct vision was passed down the oropharynx past the GE junction into the stomach and subsequently into the descending duodenum. The vocal cords appe ared healthy. The esophageal mucosa appeared to be normal throughout . GE junction, no patholo gy seen. Retroflexion showed small polyp in the gastric fundus and also, she has some 2 to 3 gastric polyps over the gastric body. They appeared endoscopically benign on biopsy. The remaining gastric body, gastric antrum, incisural angularis, no pathology seen. The scope was advanced into the duode nal bulb, descending duodenum. There was a large amount of bilious material seen, but I do not see a ny ulcerations or any other pathology. There was no AV malformation. The stomach was decompressed a nd the scope was removed. RECOMMENDATIONS: 1. n.p.o. 2. Diet as tolerated. 3. Follow up H and H.
[2018-06-05] MEDS: Atorvastatin Calcium 10 MG TAB PO SCH (20:53)
[2018-06-06] MEDS: Metoprolol Tartrate 25 MG TAB PO SCH (07:14)
[2018-06-06] MEDS: Enoxaparin Sodium 40 MG/0.4 ML SYRINGE SC SCH (09:33)
[2018-06-06] MEDS: levETIRAcetam 500 MG TAB PO SCH (09:33)
[2018-06-06] MEDS: Fish Oil 1,000 MG CAP PO SCH (09:33)
--- NOTE | 2018-06-06 10:42 | PDOC.PN ---
- Subjective Encounter Start Date: 06/06/18 Encounter Start Time: 09:00 Subjective: had colonoscopy this am, feels good, wants to go home - Objective Resuscitation Status: Resuscitation Status DNR:Do Not Resuscitate MAR Reviewed: Yes Vital Signs & Weight: Vital Signs (12 hours) Temp Pulse Resp BP Pulse Ox 06/06/18 07:27 94 L 06/06/18 07:26 98.7 F 68 16 133/62 94 L Weight Admit Weight 97 lb 12.8 oz Weight 97 lb 12.8 oz I&O: 06/05/18 06/06/18 06/07/18 06:59 06:59 06:59 Intake Total 4740 Balance 4740 Result Diagrams: 06/05/18 08:27 06/05/18 10:40 Phys Exam - Physical Examination HEENT: PERRLA, moist MMs Neck: no JVD, supple Respiratory: no wheezing, no rales Cardiovascular: RRR, no significant murmur Gastrointestinal: soft, non-tender, positive bowel sounds Musculoskeletal: no edema, pulses present Neurological: non-focal, moves all 4 limbs Psychiatric: normal affect, A&O x 3 Dx/Plan (1) GI bleed Code(s): K92.2 - GASTROINTESTINAL HEMORRHAGE, UNSPECIFIED Status: Acute Qualifiers: GI bleed type/associated pathology: unspecified gastrointestinal hemorrhage type Qualified Code(s): K92.2 - Gastrointestinal hemorrhage, unspecified (2) MGUS (monoclonal gammopathy of unknown significance) Code(s): D47.2 - MONOCLONAL GAMMOPATHY Status: Chronic Comment: on procrit 60k u q weekly (3) Acute post-hemorrhagic anemia Code(s): D62 - ACUTE POSTHEMORRHAGIC ANEMIA Status: Acute (4) DVT (deep venous thrombosis) Code(s): I82.409 - ACUTE EMBOLISM AND THOMBOS UNSP DEEP VN UNSP LOWER EXTREMITY Status: Chronic Comment: prior h/o PE/dvt (5) Osteoporosis Code(s): M81.0 - AGE-RELATED OSTEOPOROSIS W/O CURRENT PATHOLOGICAL FRACTURE Status: Chronic Qualifiers: Osteoporosis type: age-related (6) Pulmonary HTN Code(s): I27.20 - PULMONARY HYPERTENSION, UNSPECIFIED Status: Chronic (7) Paroxysmal A-fib Code(s): I48.0 - PAROXYSMAL ATRIAL FIBRILLATION Status: Chronic - Plan h/h stable -: to f/u with GI for biopsy results -: hemostable -: dc pt home -: d/w patient and grand daughter at bedside * .
[2018-06-06] MEDS ORDERED: PROPOFOL 200 MG/20 ML VIAL ONE (13:02)
[2018-06-06] MEDS ORDERED: ePHEDrine/0.9% NaCl/PF SYRINGE 50 mg/10 ml ONE (13:02)
[2018-06-06] MEDS ORDERED: Lidocaine 1% PF 5 ML VIAL ONE (13:02)
[2018-06-06 13:44] VITALS: BP 148/64; TEMP 97.4
--- NOTE | 2018-06-06 20:42 | OP ---
DATE OF PROCEDURE: 06/06/2018 OPERATIVE PROCEDURE: Colonoscopy with biopsy. PREOPERATIVE DIAGNOSES: An 87-year-old female with anemia, history of chronic diarrhea, we ight loss. She underwent colonoscopy. POSTOPERATIVE DIAGNOSES: 1. Sigmoid diverticular disease with occasional diverticula as well as the transverse colon. 2. Hypertrophied anal papilla. 3. Otherwise, normal colonoscopy. 4. Random biopsy of the ascending colon, transverse colon, and sigmoid colon to rule out microscopic colitis. PROCEDURE NOTE: The patient was placed on her left lateral position and was given sedation by Anesth esia Department. A rectal exam was done. The scope was advanced into the rectum. No lesion felt on rectal exam, she has some erythematous areas seen over the buttocks area. A Pentax video colonoscop e was introduced in the rectum and advanced all the way to the cecum. The prep was excellent. The m ucosa appears normal throughout the colon with normal vascular pattern. The appendiceal orifice, ile ocecal valve, cecum, no pathology seen. Withdrawal from the ascending colon into the hepatic flexure , transverse colon, splenic flexure, descending colon, and sigmoid colon, no lesion except for sigmoi d diverticular disease. Retroflexion of the scope in the rectum showed hypertrophied anal papilla. Random biopsy was obtained to rule out microscopic colitis. RECOMMENDATIONS: 1. Diet: As tolerated. 2. From GI standpoint, she can be discharged home and we will follow up with Dr. Douglas Brewer as an ou tpatient.
--- NOTE | 2018-06-06 20:52 | DIS ---
DATE OF ADMISSION: 06/03/2018 DATE OF DISCHARGE: 06/06/2018 DISCHARGE DISPOSITION: To home. PRIMARY DISCHARGE DIAGNOSES: Acute blood loss anemia with suspected gastrointestinal bleed, resolved ; history of monoclonal gammopathy of unknown significance; osteoporosis; history of deep venous thro mbosis and pulmonary embolism, on Xarelto; pulmonary hypertension; paroxysmal atrial fibrillation, cu rrently in sinus rhythm. PROCEDURES DONE DURING HOSPITALIZATION: The patient has had upper endoscopy done, which showed no ac tive bleeding. She had 2-3 gastric polyps seen. The patient also had colonoscopy done, which has no t shown any active bleeding. Biopsies have been obtained. H&H 11 and 32 on discharge. Admission H&H was 6.7 and 19. BUN 9, creatinine 0.7. DISCHARGE MEDICATIONS: Budesonide inhaler twice daily, Bentyl p.r.n., Procrit 60,000 units subcu sara alatorre, fish oil 1200 mg p.o. twice daily, Lopressor 12.5 mg twice daily, mirtazapine 15 mg p.o. at bedt glenn, multivitamin 1 tab once daily, Protonix 40 mg daily, Xarelto 20 mg p.o. at bedtime, simvastatin 40 mg p.o. q.p.m. ALLERGIES: No known drug allergies. INPATIENT CONSULTS: Dr. Brewer/Dr. Card for Gastroenterology. BRIEF COURSE DURING HOSPITALIZATION: The patient initially was sent as a direct admit from oncologis t's office with complaints of diarrhea and two episodes of black vomitus. Her initial hemoglobin was 6.7 grams. The patient has known history of MGUS and is on Procrit weekly. In view of this history , the patient was admitted to oncology floor. She has had consultation with Dr. Brewer for Gastroenter ology. The patient had upper and lower endoscopies done, which have not shown any active bleeding. She has had 2 units of packed cell transfusions done. Her H&H has remained stable. Stool studies [place] ve not shown any active bacterial infection. She remained hemodynamically stable and will be shortly discharged home. She needs to follow up with primary care physician in one week and Dr. Brewer to fol low up with the biopsies obtained on colonoscopy.
== END 2018-06-06 12:07 | disposition home or self-care (01) | DRG 812 ==
LOC: ONC 13:13
PROVIDERS: ADMIT Internal Medicine Infectious Disease; ATTEND Internal Medicine Infectious Disease
PROC: 30233N1 Transfusion of Nonautologous Red Blood Cells into Peripheral Vein, Percutaneous Approach (ICD-10-PCS; 2018-06-03)
PROC: 30233N1 Transfusion of Nonautologous Red Blood Cells into Peripheral Vein, Percutaneous Approach (ICD-10-PCS; 2018-06-04)
PROC: 0DJ08ZZ Inspection of Upper Intestinal Tract, Via Natural or Artificial Opening Endoscopic (ICD-10-PCS; principal; 2018-06-05)
PROC: 0DDK8ZX Extraction of Ascending Colon, Via Natural or Artificial Opening Endoscopic, Diagnostic (ICD-10-PCS; 2018-06-06)
PROC: 0DDL8ZX Extraction of Transverse Colon, Via Natural or Artificial Opening Endoscopic, Diagnostic (ICD-10-PCS; 2018-06-06)
PROC: 0DDN8ZX Extraction of Sigmoid Colon, Via Natural or Artificial Opening Endoscopic, Diagnostic (ICD-10-PCS; 2018-06-06)
DX: D62 Acute posthemorrhagic anemia (principal); K92.2 Gastrointestinal hemorrhage, unspecified; K92.0 Hematemesis; Z68.1 Body mass index [BMI] 19.9 or less, adult; M81.0 Age-related osteoporosis without current pathological fracture; Z86.711 Personal history of pulmonary embolism; Z86.718 Personal history of other venous thrombosis and embolism; Z79.01 Long term (current) use of anticoagulants; I27.20 Pulmonary hypertension, unspecified; I48.0 Paroxysmal atrial fibrillation; Z66 Do not resuscitate; Z79.899 Other long term (current) drug therapy; G40.909 Epilepsy, unspecified, not intractable, without status epilepticus; E78.5 Hyperlipidemia, unspecified; Z86.2 Personal history of diseases of the blood and blood-forming organs and certain disorders involving the immune mechanism; R63.4 Abnormal weight loss
CPT/HCPCS: 36415; 36430; 74177; 80048; 80053; 82274; 83690; 83880; 85007; 85025; 85027; 86850; 86900; 86901; 86922; 87040; 87045; 87046; 87324; 87449; 87899; 88305; 96360; 96361; C9113; G8978-GP-CJ; G8979-GP-CJ; G8980-GP-CJ; G8996-GN-CH; G8997-GN-CH; J1650; J2001; J2704; P9016